=== PATIENT | female | born 1995 | race Caucasian/White ===

== ENCOUNTER 2025-04-23 12:45 | Outpatient (OUT) | payer OTHER, SELFPAY ==
--- OUTSIDE RECORDS SUMMARY | 2025-04-10 10:10 | XMS_ITS | Encounter Summary ---
Author Organization [facility] Address [address] [place] [address] Care Team Providers Care Tempering Oven Operator Name Role Phone Florecita Ureña MD Primary Care Provider [phone] Reason for Visit * Reason Comments Routine Visit Encounter Details Date Type Department Care Team (Late st Contact Info) Description 04/10/2025 10:10 AM EDT Initial [facility] [address] [place] [address] Ravindra Chandler DO [address] [facility] [address] [place] [place] [address] GA: 15w5d Social History Tobacco Use Types Packs/Day Years Used Date Smoking Tobacco: Never Assessed Estimated Date of Delivery Comme nts Yes 09/27/2025 Based on Ultraso und, FHR- 117 Sex and Gender Information Value Date Recorded Sex Assigned at Not on file Legal Sex Female 11:47 PM EDT Gender Identity Not on file Sexual Orientation Not on file documented as of this encounter Last Filed Vital Signs Vital Sign Reading Time Taken Comments Blood Pressure 120/70 04/10/2025 10:19 AM EDT Pulse - - Temperature - - Respiratory Rate - - Oxygen Saturation - - Inhaled Oxygen Concentration - - Weight 118 kg (259 lb 12.8 oz) 04/10/2025 10:19 AM EDT Height 162.6 cm (5' 4 ) 04/10/2025 10:22 AM EDT Body Mass Index 44.59 04/10/2025 10:19 AM EDT documented in this encounter Progress Notes * Dari Melgar LPN - 04/10/2025 10:10 AM EDT Reason for Appointment: Patient ID: Emilie Soto is a 29 y.o. female who presents for Routine Visit Patient presents today for Return OB appointment. MEDICATIONS Current Outpatient Medications Medication Instructions Doxylamine Succinate, Sleep, (UNISOM PO) 1 tablet, Nightly ondansetron (ZOFRAN) 4 mg, Every 8 hours PRN Prenat w/o K-TaEqj-Zupd-FA-DHA (TriStart DHA) 31-0.6-0.4-200 MG capsule 1 capsule, Daily RT ALLERGIES No Known Allergies PROBLEMS Active Ambulatory Problems Diagnosis Date Noted No Active Ambulatory Problems Resolved Ambulatory Problems Diagnosis Date Noted No Resolved Ambulatory Problems Past Medical History: Diagnosis Date Anxiety Bipolar disorder ([facility]) Depression Pre-eclampsia ([facility]) HISTORY PAST MEDICAL HISTORY SOCIAL HISTORY Past Medical History: Diagnosis Date Anxiety Bipolar disorder ([facility]) Depression Pre-eclampsia ([facility]) Social History Tobacco Use Smoking status: Not on file Smokeless tobacco: Not on file Substance Use Topics Alcohol use: Not on file Drug use: Not on file FAMILY HISTORY No family history on file. SURGICAL HISTORY History reviewed. No pertinent surgical history. REVIEW OF SYSTEMS Review of Systems: Review of Systems Constitutional: Negative. HENT: Negative. Eyes: Negative. Respiratory: Negative. Cardiovascular: Negative. Gastrointestinal: Negative. Genitourinary: Negative. Musculoskeletal: Negative. Skin: Negative. Neurological: Negative. All other systems reviewed and are negative. Hematological: Negative. Endocrine: Negative. Allergic/Immunologic: Negative. OBJECTIVE Objective: OBGyn Exam Vitals: Estimated body mass index is 44.59 kg/m?? as calculated from the following: Height as of this encounter: 5' 4 . Weight as of this encounter: 259 lb 12.8 oz. BP: 120/70 No LMP recorded. Patient is . ASSESSMENT & PLAN ICD-10-CM 1. Missed menses N92.6 2. , unspecified gestational age ([facility]) Z34.90 CBC and differential Hemoglobin A1c RPR Rapid drug screen, urine Rapid drug screen, urine POCT urinalysis dipstick manually resulted 3. Encounter for supervision of normal first in first trimester ([facility]) Z34.01 4. 15 weeks gestation of ([facility]) Z3A.15 CBC and differential Hemoglobin A1c RPR Urine culture Rapid drug screen, urine Rapid drug screen, urine POCT urinalysis dipstick manually resulted 5. Second trimester ([facility]) Z34.92 CBC and differential Hemoglobin A1c RPR Urine culture Rapid drug screen, urine Rapid drug screen, urine POCT urinalysis dipstick manually resulted New OB: Patient presents today for 1st time obstetrics appointment with provider. Patient is currently 15w5d . Patients history has been reviewed in great detail including any potential risks. Patient stated she currently has complaints of nausea taking zofran currently. Expectations throughout regarding labs, ultrasounds, and appointments have been discussed with the patient in detail.It was reiterated that the patient is to drink 6-8 glasses of water a day, eat 6 small meals a day,do not consume raw or undercooked meat, and stay away from [facility]. Patient has been consulted regarding any further do's and don'ts of . Patient voiced understanding and all questions and concerns were answered. Pt has complaints of craving Vape, rx for wellbutrin faxed to pharmacy. Patient stated today that she requests sterilization following the of her baby whether that be 6 weeks following vaginal delivery or at the time of if one is needed. Orders Placed This Encounter Procedures Urine culture CBC and differential Hemoglobin A1c RPR Rapid drug screen, urine POCT urinalysis dipstick manually resulted Follow Up: Patient is to return in 4 weeks for routine OB appointment. Documented by Dari Melgar LPN on behalf of: Ravindra Chandler DO documented in this encounter Plan of Treatment Upcoming Encounters Date Type Department Care Team (Late st Contact Info) Description 05/08/2025 11:20 AM EDT Routine [facility] [address] [place] [address] April Rowley PA [address] [place], [place] [id number] 10/04/2025 10:20 AM EST Consult [facility] [address] [place] [address] Ravindra Chandler, DO [address] [place] [address] Dr [place] [id number] Scheduled Orders Name Type Priority Associated Diagnoses Orde r Schedule CBC and differential Lab Routine , unspecified gestational age ([facility]) 15 weeks gestation of ([facility]) Second trimester ([facility]) Ordered: 04/10/2025 Hemoglobin A1c Lab Routine , unspecified gestational age ([facility] 15 weeks gestation of ([facility]) Second trimester ([facility]) Ordered: 04/10/2025 RPR Lab Routine , unspecified gestational age ([facility]) 15 weeks gestation of ([facility]) Second trimester ([facility]) Ordered: 04/10/2025 Urine culture Microbiology Routine 15 weeks gestation of ([facility]) Second trimester ([facility]) Ordered: 04/10/2025 Rapid drug screen, urine Lab Routine , unspecified gestational age ([facility]) 15 weeks gestation of ([facility]) Second trimester ([facility]) Expected: 04/10/2025 (Approximate), Expires: 04/10/2026 documented as of this encounter Procedures Procedure Name Priority Date/Time Associated Diagnosis Comments POCT URINALYSIS DIPSTICK Routine 04/10/2025 10:29 AM EDT , unspecified gestational age ([facility]) 15 weeks gestation of ([facility]) Second trimester ([facility]) documented in this encounter Results * POCT urinalysis dipstick manually resulted (04/10/2025 10:29 AM EDT) Color, UA Yellow Clarity, UA Clear Glucose, UA Negative Negative - 2000(110) ++++ mg/dL Bilirubin, UA Negative Negative - 4(70) +++ mg/dL Ketones, UA Negative Negative - 160(16) ++++ mg/dL Spec Grav, UA 1.020 1 - 1.03 Blood, UA Negative Negative - 50 Jose/mcL pH, UA 6.0 5 - 9 Protein, UA Negative Negative - 1999(20) ++++ mg/dL Urobilinogen, UA 1.0 0.2 - 12 mg/dL Leukocytes, UA Negative Negative - 500+++ Jai/mcL Nitrite, UA Negative Negative - Positive Urine 04/10/2025 10:2 9 AM EDT Ravindra Chandler DO POINT OF CARE TEST ENTER/EDIT OR DERABLES Final Result documented in this encounter Visit Diagnoses Diagnosis Missed menses , unspecified gestational age ([facility]) Encounter for supervision of normal first in first trimester ([facility]) 15 weeks gestation of ([facility]) Second trimester ([facility]) state, incidental Vapes nicotine containing substance documented in this encounter Care Teams Tempering Oven Operator Relationship Specialty Start Date End Date Florecita Ureña MD [address] [place] [address], [facility] [address], [place] [address] PCP - General Family Medicine 04/10/25 documented as of this encounter
--- OUTSIDE RECORDS SUMMARY | 2025-04-23 12:57 | XMS_ITS ---
Author Organization [facility] [facility] Source Produ ction (ClinicalSummary Clone) Address Unknown Care Team Providers Care Deburrer Strip Name Role Phone Unavailable Primary Care Physician Unavailab le Results * [UNITY] ANEUPLOIDY NIPT Performed by: [employer] Component Value Range Date Fraction 8.5% 03/12/2025 02 :19 am UT 22q11.2 Microdeletion LOW RISK <1 in 10,000 03/12/2025 02:19 am UT Sex Chromosome Aneuploidy NOT DETECTED 02:19 am UT Monosomy X LOW RISK <1 in 10,000 2024 02:19 am UTC Trisomy 13 LOW RISK <1 in 10,000 2024 02:19 am UTC Trisomy 18 LOW RISK <1 in 10,000 2024 02:19 am UTC Trisomy 21 LOW RISK <1 in 10,000 2024 02:19 am UT Sex FEMALE 03/12/2025 02:1 9 am UT Gestation ALBARADO 03/12/20 25 02:19 am UT For detailed report, see PDF See PDF 03/12/2025 02:19 am UTC 03/12/2025 02:1 9 am UT Social History Observation Value Start Date End Date
--- OUTSIDE RECORDS SUMMARY | 2025-04-23 12:57 | XMS_ITS | Encounter Summary ---
Author Organization [employer] Address [id number] [address] [place] [address] Care Team Providers Care Intake Manager Name Role Phone Florecita Ureña MANAGER SPRING-UTILITY TENDER CARDING Primary Care Provider Reason for Visit * Reason Comments Med Refill Encounter Details Date Type Department Care Team (Late st Contact Info) Description 07/20/2024 Refill [facility] [address] [place] [address] Florecita Ureña APRN-[facility] [address] [place] [address] Insulin resistance Social History Tobacco Use Types Packs/Day Years Used Date Smoking Tobacco: Former Cigarettes Smokeless Tobacco: Never Alcohol Use Standard Drinks/Week Comments No 0 (1 standard drink = 0.6 oz pur e alcohol) PHQ-2 Answer Date Recorded Total Score 21 06/26/2024 Childcare Answer Date Recorded Childcare Unknown 03/07/2019 Employment Answer Date Recorded Employment Unknown 03/07/2019 Hunger Screening Answer Date Recorded Within the past 12 months we worried whether our food would run out before we got money to buy more. Never True 06/26/2024 Within the past 12 months th e food we bought just didn't last and we didn't have money to get more. Never True 06/26/2024 Purpose - Life Answer Date Recorded Purpose and direction in life Unknown Comments No Sex and Gender Information Value Date Recorded Sex Assigned at Not on file Legal Sex Female 7:08 PM EDT Gender Identity Not on file Sexual Orientation Not on file documented as of this encounter Plan of Treatment Not on file documented as of this encounter Visit Diagnoses Diagnosis Insulin resistance Other abnormal glucose documented in this encounter Additional Health Concerns Assessment Noted Time PHQ-9 Depression Total Score: 21 024 9:16 AM EDT documented as of this encounter Care Teams Intake Manager Relationship Specialty Start Date End Date Florecita Ureña APRN-DAVID [address] [place] [address], [place] [phone] PCP - General Nurse Practitioner 06/26/24 documented as of this encounter
--- OUTSIDE RECORDS SUMMARY | 2025-04-23 12:57 | XMS_ITS | Encounter Summary ---
Author Organization [employer] [facility] tem Address [id number] [address] [place] [address] Care Team Providers Care Water Plant Maintenance Mechanic Name Role Phone Florecita Ureña CHILD PSYCHOLOGY TEACHER-ELECTRIC ORGAN INSPECTOR AND REPAIRER Primary Care Provider Encounter Details Date Type Department Care Team (Late st Contact Info) Description 11/24/2024 Telephone [facility] [address] [facility] [place] [address] Florecita Ureña APRN-CNP [address], [place] [address] Social History Tobacco Use Types Packs/Day Years Used Date Smoking Tobacco: Former Cigarettes Smokeless Tobacco: Never Alcohol Use Standard Drinks/Week Comments No 0 (1 standard drink = 0.6 oz pur e alcohol) Overall Financial Resource Strain (CARDIA) Answe r Date Recorded How hard is it for you to pa y for the very basics like food, housing, medical care, and heating? Not hard at all 10/02/2024 PHQ-2 Answer Date Recorded Total Score 21 06/26/2024 PRAPARE - Transportation Answer Date Re corded In the past 12 months, has l ack of transportation kept you from medical appointments or from getting medications? No 02/2025 In the past 12 months, has l ack of transportation kept you from meetings, work, or from getting things needed for daily living? No 10/02/2024 Housing Instability Answer Date Recorde d Are you worried or concerned that in the next two months you may not have stable housing that you own, rent or stay in as a part of a household? No 10/02/2024 Childcare Answer Date Recorded Childcare Unknown 03/07/2019 Employment Answer Date Recorded Employment Unknown 03/07/2019 Hunger Screening Answer Date Recorded Within the past 12 months we worried whether our food would run out before we got money to buy more. Never True 11/09/2024 Within the past 12 months th e food we bought just didn't last and we didn't have money to get more. Never True 11/09/2024 Purpose - Life Answer Date Recorded Purpose and direction in life Unknown Comments No Sex and Gender Information Value Date Recorded Sex Assigned at Not on file Legal Sex Female 7:08 PM EDT Gender Identity Not on file Sexual Orientation Not on file documented as of this encounter Plan of Treatment Not on file documented as of this encounter Visit Diagnoses Not on filedocumented in this encounter Additional Health Concerns Assessment Noted Time PHQ-9 Depression Total Score: 21 024 9:16 AM EDT documented as of this encounter Care Teams Water Plant Maintenance Mechanic Relationship Specialty Start Date End Date Florecita Ureña APRN-DAVID [address] [place] [address], [facility] [place] [phone] PCP - General Nurse Practitioner 06/26/24 documented as of this encounter
--- OUTSIDE RECORDS SUMMARY | 2025-04-23 12:57 | XMS_ITS | Clinical Summary ---
Author Organization [facility] Address [address] [place] [address] Care Team Providers Care Investigator Claims Name Role Phone Florecita Ureña MD Primary Care Provider [phone] Allergies No known active allergies Medications ondansetron (Zofran) 4 MG tablet Take 4 mg by mouth every 8 (eight) hours if needed 03/01/2025 Active Prenat w/o J-LrGao-Rofk-FA -DHA (TriStart DHA) 31-0.6-0.4-200 MG capsule Take 1 capsule by mouth in the morning. 02/06/2025 Active Doxylamine Succinate, Sleep, (UNISOM PO) Take 1 tablet by mouth at bedtime Active buPROPion SR (Wellbutrin SR) 150 MG 12 hr tabletIndicatio ns:Vapes nicotine containing substance Take 1 tablet (150 mg) by mouth at bedtime 30 tablet 11 04/10/2025 Active Encounters Date Type Department Care Team Description 04/10/2025 10:10 [place] [address] Ravindra Chandler DO GA: 15w5d 04/10/2025 [place] [address] Ravindra Chandler DO 04/03/2025 Travel from Last 3 Months Social History Tobacco Use Types Packs/Day Years Used Date Smoking Tobacco: Never Assessed Estimated Date of Delivery Comme nts Yes 09/27/2025 Based on Ultraso und, FHR- 117 Sex and Gender Information Value Date Recorded Sex Assigned at Not on file Legal Sex Female 11:47 PM EDT Gender Identity Not on file Sexual Orientation Not on file Last Filed Vital Signs Vital Sign Reading [...] Mass Index 44.59 04/10/2025 10:19 AM EDT Plan of Treatment Upcoming Encounters Date Type Department Care Team (Late st Contact Info) Description 05/08/2025 11:20 AM EDT Routine [facility] [address] [facility] [place] [address] April Rowley PA [address] [place] [address] 10/04/2025 10:20 AM EST Consult [facility] [address] [facility] [place] [address] Ravindra Chandler DO [address] [facility] [address] [place], [place] [phone] Procedures Procedure Name Priority Date/Time Associated Diagnosis Comments POCT URINALYSIS DIPSTICK Routine 04/10/2025 10:29 AM EDT , unspecified gestational age ([facility]) 15 weeks gestation of ([facility]) Second trimester ([facility]) from Last 3 Months Results * POCT urinalysis dipstick manually resulted [...] - 9 Protein, UA Negative Negative - 2000(20) ++++ mg/dL Urobilinogen, UA 1.0 0.2 - 12 mg/dL Leukocytes, UA Negative Negative - 500+++ Jai/mcL Nitrite, UA Negative Negative - Positive Urine 04/10/2025 10:2 9 AM EDT Ravindra Chandler DO POINT OF CARE TEST ENTER/EDIT OR DERABLES Final Result from Last 3 Months Insurance [employer] Care Teams Investigator Claims Relationship Specialty Start Date End Date Florecita Ureña MD [address] [facility] [address] [place], [place] [phone] PCP - General Family Medicine 04/10/25
--- OUTSIDE RECORDS SUMMARY | 2025-04-23 12:57 | XMS_ITS | Encounter Summary ---
Author Organization [facility] Address [address] [facility] [place] [address] Care Team Providers Care Process Control Engineer Name Role Phone Florecita Ureña MD Primary Care Provider [phone] Encounter Details Date Type Department Care Team (Late Contact Info) Description 04/10/2025 Bamboo flowsheet [facility] [address] [place] [address] Ravindra Chandler DO [address] [place], [facility] Social History Tobacco Use Types Packs/Day Years [...] as of this encounter Plan of Treatment Upcoming Encounters Date Type Department Care Team (Late Contact Info) Description 05/08/2025 11:20 AM EDT Routine [facility] [address] [place] [address] April Rowley PA [address] [place] [address] 10/04/2025 10:20 AM EST Consult [facility] [address] [place] [address] Geraldine, Ravindra, [address] [place] [address] documented as of this encounter Visit Diagnoses Not on filedocumented in this encounter Care Teams Process Control Engineer Relationship Specialty Start Date End Date Florecita Ureña MD [address] [facility] [address], [place] [address] PCP - General Family Medicine 04/10/25 documented as of this encounter
--- OUTSIDE RECORDS SUMMARY | 2025-04-23 12:57 | XMS_ITS | Encounter Summary ---
Author Organization [employer] [facility] tem Address [id number] [address] [place] [address] Care Team Providers Care Grey Washer Name Role Phone Florecita Ureña E LEARNING DEVELOPER-ROOFING MACHINE OPERATOR Primary Care Provider Encounter Details Date Type Department Care Team (Late st Contact Info) Description 06/26/2024 Orders Only [facility] [address] [place] [address] [place] [phone] Mago Wilhelm CMA Social History Tobacco Use Types Packs/Day Years [...] documented as of this encounter Care Teams Grey Washer Relationship Specialty Start Date End Date Florecita Ureña APRN-ROOFING MACHINE OPERATOR [address] [place] [address], [place] [address] PCP - General Nurse Practitioner 06/26/24 documented as of this encounter
--- OUTSIDE RECORDS SUMMARY | 2025-04-23 12:57 | XMS_ITS | Encounter Summary ---
Author Organization [email or web address] tem Address [facility]-[id number] [address] [place] [address] Care Team Providers Care Emergency Management Director Name Role Phone Florecita Ureña WHARF LABOURER-OPTICAL LABORATORY TECHNICIAN Primary Care Provider Reason for Visit * Reason Comments Med Refill Encounter Details Date Type Department Care Team (Late st Contact Info) Description 08/21/2024 Refill [facility] [address] [place] [address] Florecita Ureña [facility]N-[facility] [address] [place] [address] Insulin resistance Social History Tobacco Use [...] got money to buy more. Never True 07/26/2024 Within the past 12 months th e food we bought just didn't last and we didn't have money to get more. Never True 07/26/2024 Purpose - Life Answer Date Recorded Purpose [...] documented as of this encounter Care Teams Emergency Management Director Relationship Specialty Start Date End Date Florecita Ureña APRN-DAVID [address] [place] [address], [place] [phone] PCP - General Nurse Practitioner 06/26/24 documented as of this encounter
--- OUTSIDE RECORDS SUMMARY | 2025-04-23 12:57 | XMS_ITS | Encounter Summary ---
Author Organization [employer] tem Address [id number] [address] [place] [address] Care Team Providers Care Tumbler Operator Name Role Phone Florecita Ureña MORTGAGE LOAN COORDINATOR-[facility] Primary Care Provider Reason for Visit * Reason Onset Date Comments Med Refill 08/21/2024 Encounter Details Date Type Department Care Team (Late st Contact Info) Description 08/21/2024 Refill [facility] [address] [place] [address] Florecita Ureña APRN-CNP [address] [place], [place] [address] Insulin resistance Social History Tobacco Use [...] documented as of this encounter Care Teams Tumbler Operator Relationship Specialty Start Date End Date Flroecita Ureña APRN-DAVID [address] [place] [address], [place] [address] PCP - General Nurse Practitioner 06/26/24 documented as of this encounter
--- OUTSIDE RECORDS SUMMARY | 2025-04-23 12:57 | XMS_ITS | Encounter Summary ---
Author Organization [facility] Address [address] [facility] [place] [address] Care Team Providers Care Human Resources Admin Name Role Phone Florecita Ureña MD Primary Care Provider [phone] Encounter Details Date Type Department Care Team (Late Contact Info) Description 12/08/2024 Orders Only [facility] [address] [place] [address] [place] [phone] Saundra Ríos MA [address] [place] [address] Social History Tobacco Use Types Packs/Day Years Used Date Smoking Tobacco: Never Assessed Comments Unknown Sex and Gender Information Value Date Recorded Sex Assigned at Not on file Legal Sex Female 11:47 PM EDT Gender Identity Not on file Sexual Orientation Not on file documented as of this encounter Plan of Treatment Upcoming Encounters Date Type Department Care Team (Late Contact Info) Description 05/08/2025 11:20 AM EDT Routine [facility] [address] [place] [address] [place] [address] April Rowley PA [address] [facility] [address] [place], [place] [id number] 10/04/2025 10:20 AM EST Consult [facility] [address] [place] [address] [place] [address] Ravindra Chandler DO [address] [facility] [address] [place], [place] [id number] documented as of this encounter Procedures Procedure Name Priority Date/Time Associated Diagnosis Comments PAP SMEAR Routine 08/16/2019 12:00 AM EST documented in this encounter Results * Pap Smear (08/16/2019 12:00 AM EST) Swab Cervical swab / Unknown us Ravindra Geraldine DO LAB CYTOLOGY ORDERABLES Final Re sult EXTERNAL LAB documented in this encounter Visit Diagnoses Not on filedocumented in this encounter Care Teams Human Resources Admin Relationship Specialty Start Date End Date Florecita Ureña MD [address] [facility] [address], [place] [address] PCP - General Family Medicine 04/10/25 documented as of this encounter
--- OUTSIDE RECORDS SUMMARY | 2025-04-23 12:58 | XMS_ITS | Clinical Summary ---
Author Organization [employer] tem Address [id number] [address] [place] [address] Care Team Providers Care Jump [employer] Machine Presser Name Role Phone Florecita Ureña APRN-BIOMETRICS ANALYST Primary Care Provider Allergies No known active allergies Medications [id number] 9-dha 31 mg iron- 1 mg-200 mg capsuleIndicati ons:First trimester Take 1 capsule by mouth in the morning. 90 capsule 3 02/06/2025 Active ondansetron (ZOFRAN) 4 mg tabletIndicatio ns:Nausea/vomit ing in Take 1 tablet (4 mg total) by mouth every 8 (eight) hours as needed for nausea or vomiting. 30 tablet 1 03/01/2025 Active doxylamine (UNISOM) 25 mg tabletIndicatio ns:Nausea/vomit ing in Take 1 tablet (25 mg total) by mouth nightly as needed for sleep or nausea. 30 tablet 1 03/08/2025 Active acetaminophen (TYLENOL EXTRA STRENGTH) 500 mg tablet Take 2 tablets (1,000 mg total) by mouth every 6 (six) hours as needed for pain. Active Active Problems Problem Noted Date Diagnosed Date Maternal varicella, non-immune 02/11/2025 Rubella equivocal status, antepartum 02/11/2025 Vapes nicotine containing substance 02/06/2025 Marijuana use during 02/06/2025 Family history of autism 02/06/2025 Overview (02/06/2025): 3 of 4 children are autistic, fourth child is getting tested. Nausea/vomiting in 02/06/2025 Obesity affecting 09/08/2024 High cholesterol 05/10/2024 Overview (02/06/2025): Just found out ADHD (attention deficit hyperactivity disorder) Overview (10/18/2024): Child Anxiety Bipolar disorder Depression History of gestational hypertension Estimated Date of Delivery Comme nts Yes 09/27/2025 Based on Ultraso und Encounters Date Type Department Care Team Description 03/28/2025 11:30 AM EDT Routine [facility] Obstetrics/Gynecolo gy [address] [place] [phone] Mesha Johnson, DIRECTOR OF RESOURCE DEVELOPMENT-BIOMETRICS ANALYST GA: [id number] 03/27/2025 Travel 03/13/2025 Telephone [facility] Obstetrics/Gynecolo gy [address] [place] [address] Mickie Mathur CMA 03/13/2025 Telephone Maternal- Medicine at [facility] [address] [place] [phone] Dottie Pressley RN 03/12/2025 Telephone [facility] Obstetrics/Gynecolo gy [address] [place] [phone] No Pcp, No Pcp 03/08/2025 Orders Only [facility] Obstetrics/Gynecolo gy [address] [place] [address] Mesha Johnson, DIRECTOR OF RESOURCE DEVELOPMENT-BIOMETRICS ANALYST Nausea/vomiting in (Primary Dx) 03/01/2025 8:45 AM EDT Initial [facility] Obstetrics/Gynecolo gy [address] [place] [address] Mesha Johnson, DIRECTOR OF RESOURCE DEVELOPMENT-BIOMETRICS ANALYST GA: 10w0d 02/28/2025 Travel 02/20/2025 Telephone [facility] Obstetrics/Gynecolo gy [address] [place] [address] Mesha Johnson, DIRECTOR OF RESOURCE DEVELOPMENT-BIOMETRICS ANALYST 02/12/2025 1:30 PM EDT Office Visit [facility] [address] [place] [address] [place] [phone] Ronnie Tate, Irritant contact dermatitis due to plants, except food (Primary Dx) 02/12/2025 Travel 02/09/2025 Orders Only [facility] Obstetrics/Gynecolo [address] [place] [phone] Mickie Mathur CMA First trimester (Primary Dx) 02/08/2025 Travel 02/06/2025 1:00 PM EDT Telemedicine [facility] Obstetrics/Gynecolo [address] [facility] [place] [address] Mesha Johnson, DIRECTOR OF RESOURCE DEVELOPMENT-BIOMETRICS ANALYST First trimester (Primary Dx); History of gestational hypertension; Nausea and vomiting during prior to 22 weeks gestation; Nausea/vomiting in 02/06/2025 Travel 02/05/2025 Orders Only [facility] Obstetrics/Gynecolo [address] [facility] [place] [address] Veronique Horton, DIRECTOR OF RESOURCE DEVELOPMENT-CNM 02/02/2025 12:29 PM EDT - 02/02/2025 11:59 PM EDT Hospital Encounter [facility] - Ultrasound [address] [place] [address] Mesha Johnson, DIRECTOR OF RESOURCE DEVELOPMENT-BIOMETRICS ANALYST Amenorrhea; Positive blood test Discharge Disposition: Home 02/01/2025 Orders Only [facility] Obstetrics/Gynecolo [address] [place] [phone] Marisa Richard RN Amenorrhea (Primary Dx); Positive blood test 01/31/2025 Travel 01/30/2025 Orders Only [facility] Obstetrics/Gynechugh [address] [place] [address] Mesha Johnson, DIRECTOR OF RESOURCE DEVELOPMENT-BIOMETRICS ANALYST Positive urine test (Primary Dx) 01/30/2025 Telephone [facility] Obstetrics/Gynechugh [address] [place] [address] Mesha Johnson, DIRECTOR OF RESOURCE DEVELOPMENT-BIOMETRICS ANALYST from Last 3 Months Family History Medical History Relation Name Comments Heart disease Father Mateo soto Hypertension Mother Geri escoto Relation Name Status Comments Father Mateo soto Alive Mother Geri esocto Social History Tobacco Use Types Packs/Day Years Used Date Smoking Tobacco: Former Cigarettes 3 1.3 S tarted: 04/26/2024 Vaping/E-cigarettes Smokeless Tobacco: Never Tobacco Cessation:Counseling Given: Not Answered Alcohol Use Standard Drinks/Week Comments No 0 (1 standard drink = 0.6 oz pur e alcohol) Overall Financial Resource Strain (CARDIA) Answe r Date Recorded How hard is it for you to pa y for the very basics like food, housing, medical care, and heating? Patient declined 02/28/2025 PHQ-2 Answer Date Recorded Total Score 2 02/28/2025 PRAPARE - Transportation Answer Date Re corded [...] as a part of a household? No 02/28/2025 Childcare Answer Date Recorded Do problems getting child ca re make it difficult for you to work or study? No 02/28/2025 Employment Answer Date Recorded Employment Unknown 03/07/2019 Hunger Screening Answer Date Recorded Within the past 12 months we worried whether our food would run out before we got money to buy more. Never True 03/28/2025 Within the past 12 months th e food we bought just didn't last and we didn't have money to get more. Never True 03/28/2025 Purpose - Life Answer Date Recorded Purpose and direction in life Unknown Estimated Date of Delivery Comme nts Yes 09/27/2025 Based on Ultraso und Sex and Gender Information Value Date Recorded Sex Assigned at Not on file Legal Sex Female 7:08 PM EDT Gender Identity Not on file Sexual Orientation Not on file Last Filed Vital Signs Vital Sign Reading Time Taken Comments Blood Pressure 122/76 03/28/2025 11:30 AM EDT Pulse 94 02/12/2025 1:38 PM EDT Temperature 37 C (98.6 F) 02/12/2025 1:38 PM EDT Respiratory Rate 20 05/06/2021 8:33 PM EDT Oxygen Saturation 98% 02/12/2025 1:38 PM EDT Inhaled Oxygen Concentration - - Weight 115.8 kg (255 lb 6.4 oz) 025 11:30 AM EDT Height 161.3 cm (5' 3.5 ) 11/21/2024 9:35 AM EST Body Mass Index 44.53 11/21/2024 9:35 AM EST Plan of Treatment Health Maintenance Due Date Last Done Comments DTaP,Tdap and Td Vaccines (7 - Td or Tdap) 02/08/2020 02/07/2010, 05/18/2003, 06/16/1999, Additional history exists Influenza Vaccine 05/28/2025 Adult BMI Follow Up Plan 06/12/2025 06/12/2024 Depression Screening 02/28/2026 02/28/2025 Adult BMI Screening 03/28/2026 03/28/2025 Tobacco Screening 03/28/2026 03/28/2025 Pap Smear 03/01/2028 03/01/2025, 07/29, 08/09/2018 Medical Devices Not on file Procedures Procedure Name Priority Date/Time Associated Diagnosis Comments THIN PREP PAP TEST Routine 03/01/2025 12 :07 PM EDT Cervical smear, as part of routine gynecological examination CHLAMYDIA/GONORRHOEAE BY PCR, FLUID Routine 03/01/2025 12:07 PM EDT Cervical smear, as part of routine gynecological examination GLU 1H POST 50G LOAD Routine 02/09/2025 11:02 AM EDT First trimester GLUCOSE TOLERANCE, 1 HR 50GM LOAD ( PATIENTS ONLY) Routine 02/09/2025 11:02 AM EDT First trimester TYPE AND SCREEN Routine 02/09/2025 9:46 AM EDT First trimester PROTEIN CREAT RATIO Routine 02/09/2025 9 :46 AM EDT First trimester URINALYSIS Routine 02/09/2025 9:46 AM EDT First trimester DRUG SCREEN, URINE Routine 02/09/2025 9: 46 AM EDT First trimester URIC ACID Routine 02/09/2025 9:46 AM EDT First trimester COMPREHENSIVE METABOLIC PANEL Routine 02/09/2025 9:46 AM EDT First trimester SYPHILIS TOTAL(UNKNOWN SYPHILIS STATUS) Routine 02/09/2025 9:46 AM EDT First trimester VARICELLA ZOSTER ANTIBODY, IGG Routine 02/09/2025 9:46 AM EDT First trimester RUBELLA IGG IMMUNE STATUS Routine 02/09/2025 9:46 AM EDT First trimester HIV 1&2 AB/AG SCREEN (P24 AG) Routine 02/09/2025 9:46 AM EDT First trimester HEPATITIS PANEL, ACUTE Routine 02/09/2025 9:46 AM EDT First trimester HCG-BETA, SERUM Routine 02/09/2025 9:46 AM EDT First trimester URINE CULTURE Routine 02/09/2025 9:46 AM EDT First trimester US PREG LESS THAN 14 WKS WITH TRANSVAGINAL Routine 02/02/2025 1:00 PM EDT Amenorrhea Positive blood test HCG-BETA, SERUM Routine 01/31/2025 8:45 AM EDT Positive urine test from Last 3 Months Results * Chlamydia/Gonorrhoeae by PCR, Fluid (03/01/2025 12:07 PM EDT) CHLAMYDIA PCR, [place] Negative Negative 03/02/2025 12:13 PM EDT [facility] Comment:Chlamydia trachomati s not detected by nucleic acid amplification. This does not exclude the possibility of infection because results are dependent on adequate specimen collection. GONORRHOEAE PCR, [place] Negative Negative 03/02/2025 12:13 PM EDT [facility] Comment:Neisseria gonorrhoea e not detected by nucleic acid amplification. This does not exclude the possibility of infection because results are dependent on adequate specimen collection. ThinPrep cytology technique (qualifier value) Cervix uteri structure / Unknown 03/01/2025 12:07 PM EDT 03/02/2025 4:02 AM EDT Mesha HAYDEN MICROBIOLOGY - GENERAL O RDERABLES Final Result [facility] [address] [place] [address], [place] [phone] * Thin Prep Pap Test (03/01/2025 12:07 PM EDT) Case Report Gynecologic Cytology Report Case: [id number] Authorizing Provider: CATRACHO Erazo Collected: 03/01/2025 1207 [facility] Received: 03/01/2025 1207 Obstetrics/Gy necology First Screen: Samantha Oliveira CT(ASCP) Rescreen: SHIRA Ford(ASCP) Specimen: Thin Prep Pap, Cervix 3:12 PM EDT [facility] Specimen Adequacy Satisfactory for evaluation, endocervical/t ransformation zone component present 3:12 PM EDT [facility] Interpretation NEGATIVE FOR INTRAEPITHELIA L LESION OR MALIGNANCY NEGATIVE FOR INTRAEPITHELIA L LESION OR MALIGNANCY, UNSATISFACTORY , EPITHELIAL CELL ABNORMALITY, GLANDULAR EPITHELIAL CELL ABNORMALITY. , SQUAMOUS EPITHELIAL CELL ABNORMALITY, NO DIAGNOSIS RENDERED. 06/09/202 5 3:12 PM EDT [facility] at 1512 EDT Additional Information The Pap test is a screening test with an inherent, but low, probability of error. The Pap test is primarily effective for the diagnosis and prevention of squamous cell carcinoma. Regular screening is critical for prevention. ThinPrep liquid-based slides, which meet the Desktop Manager criteria for automated screening, have been screened by the ThinPrep Imaging System (as of 06/13/07) along with an additional manual rescreening by a cytotechnologi st and, if indicated, by a pathologist. 5 3:12 PM EDT [facility] Clinical Information none 5 3:12 PM EDT [facility] Embedded Images 5 3:12 PM EDT [facility] ThinPrep cytology technique (qualifier value) Cervix uteri structure / Unknown 03/01/2025 12:07 PM EDT 03/01/2025 12:07 PM EDT us Mesha Johnson DIRECTOR OF RESOURCE DEVELOPMENT-BIOMETRICS ANALYST PATHOLOGY/CYTOLOGY ORDER RAMONE Final Result [facility] [address] [place] [address], * Glucose 1h post 50g load (02/09/2025 11:02 AM EDT) GLUCOSE, 1HR POST 50GM LOAD 82 65 - 139 mg/dL 02/09/2025 6:07 PM EDT [facility] Blood Venous blood / Unknown Venipuncture / Unknown 02/09/2025 11:02 AM EDT 02/09/2025 11:02 AM EDT us Mesha Johnson DIRECTOR OF RESOURCE DEVELOPMENT-BIOMETRICS ANALYST LAB BLOOD ORDERABLES Fin al Result [facility] [address] [place] [address], * HIV 1&2 AB/AG Screen (P24 AG) (02/09/2025 9:46 AM EDT) HIV 1 AND 2 AB/AG SCREEN Non-Reacti ve Non-Reacti ve 02/09/2025 9:43 PM EDT [facility] Blood Venous blood / Unknown Venipuncture / Unknown 02/09/2025 9:46 AM EDT 02/09/2025 9:46 AM EDT Narrative [facility] - 02/09/2025 9:43 PM EDT This information has been disclosed to you from confidential records protected from disclosure by state law. You shall make no further disclosure of this information without the specific, written and informed release of the individual to whom it pertains, or as otherwise permitted by state law. A general authorization for the release of medical or other information is not sufficient for the purpose of the release of HIV test results or diagnoses. Mesha Johnson DIRECTOR OF RESOURCE DEVELOPMENT-BIOMETRICS ANALYST LAB BLOOD ORDERABLES Fin al Result [facility] [address] [place] [address], * Protein creat ratio (02/09/2025 9:46 AM EDT) URINE PROTEIN, RANDOM (MG/L) 50 <120 mg/L 02/09/2025 2:01 PM EDT [facility] URINE CREATININE,RDM 97.75 mg/dL 02/09/2025 2:01 PM EDT [facility] U/PRO/DIRECTOR BUSINESS INTELLIGENCE RATIO CALC 0.05 <=0.20 02/09/2025 2:01 PM EDT [facility] Urine Urine specimen collection, clean catch / Unknown 02/09/2025 9:46 AM EDT 02/09/2025 9:46 AM EDT Narrative [facility] - 02/09/2025 2:01 PM EDT Nephrotic Syndrome is associated with ratios >3.5 Mesha Johnson DIRECTOR OF RESOURCE DEVELOPMENT-BIOMETRICS ANALYST URINE ORDERABLES Final R esult Performing Organization Address City/[facility]/ZIP Co de Phone Number [facility] [address] [place] [address], [place] [phone] * Rubella IGG immune status (02/09/2025 9:46 AM EDT) RUBELLA IMMUNE IGG 0.8 <0.9 AI 02/09/2025 11:22 PM EDT [facility] Blood Venous blood / Unknown Venipuncture / Unknown 02/09/2025 9:46 AM EDT 02/09/2025 9:46 AM EDT [facility] - 02/09/2025 11:22 PM EDT Interpretation < 0.8 NEGATIVE - considered not immune. 0.8 - 0.9 EQUIVOCAL - consider retesting with new specimen. > 0.9 POSITIVE - considered immune. Mesha Johnson DIRECTOR OF RESOURCE DEVELOPMENT-BIOMETRICS ANALYST LAB BLOOD ORDERABLES Fin al Result Performing Organization Address City/[facility]/ZIP Co de Phone Number [facility] [address] [place] [address], * Syphilis Total (Unknown Syphilis Status) (02/09/2025 9:46 AM EDT) SYPHILIS TOTAL <0.2 <=0.8 AI 02/09/2025 11:22 PM EDT [facility] Blood Venous blood / Unknown Venipuncture / Unknown 02/09/2025 9:46 AM EDT 02/09/2025 9:46 AM EDT [facility] - 02/09/2025 11:22 PM EDT NON REACTIVE No serologic evidence of infection to Treponema pallidum. Repeat testing may be considered in patients with suspected acute or primary syphilis in 2 to 4 weeks. us Mesha Johnson DIRECTOR OF RESOURCE DEVELOPMENT-BIOMETRICS ANALYST LAB BLOOD ORDERABLES Fin al Result [facility] [address] [place] [address], * (ABNORMAL) Drug Screen, Urine (02/09/2025 9:46 AM EDT) AMPHETAMINE/METHAM P Negative Negative 02/09/2025 2:03 PM EDT [facility] Comment:AMPH/METH screening cut off = 1000 ng/mL COCAINE METABOLITE Negative Negative 2024 2:03 PM EDT [facility] Comment:Cocaine screening cu t off value = 300 ng/mL ECSTASY Negative Negative 02/09/2025 2:03 PM EDT [facility] Comment:Ecstasy screening cu t off value = 500 ng/mL METHADONE Negative Negative 02/09/2025 2:03 PM EDT [facility] Comment:Methadone screening cut off value = 300 ng/mL. OPIATES Negative Negative 02/09/2025 2:03 PM EDT [facility] Comment: Opiates screening cut off value = 300 ng/mL This test is used for the detection of codeine, hydrocodone (>1000 ng/mL), morphine and hydromorphone (>900 ng/mL) in urine. OXYCODONE Negative Negative 02/09/2025 2:03 PM EDT [facility] Comment: Oxycodone screening cut off value = 300 ng/mL This test is used for the detection of oxycodone and oxymorphone in urine. PHENCYCLIDINE Negative Negative 02/09/2025 2:03 PM EDT [facility] Comment:Phencyclidine screen ing cut off value = 25 ng/mL CANNABINOIDS Positive(A) Negative 02/09/2025 2:03 PM EDT [facility] Comment:Cannabinoids/THC scr eening cut off value = 50 ng/mL Urine Barbiturates Negative Negative 2024 2:03 PM EDT [facility] Comment:Barbiturates screeni ng cut off value = 200 ng/mL BENZODIAZEPINES Negative Negative 2:03 PM EDT [facility] Comment:Benzodiazepines scre ening cut off value = 200 ng/mL Urine 02/09/2025 9:46 AM EDT 02/09/2025 9:46 AM EDT Narrative [facility] - 02/09/2025 2:03 PM EDT Confirmation available upon request. Mesha Johnson DIRECTOR OF RESOURCE DEVELOPMENT-BIOMETRICS ANALYST URINE ORDERABLES Final R esult [facility] [address] [place] [address], * Hepatitis panel, acute (02/09/2025 9:46 AM EDT) HEPATITIS B SURF AG Non-Reacti ve Non-Reacti ve 02/09/2025 9:52 PM EDT [facility] HEPATITIS A IGM Non-Reacti ve Non-Reacti ve 02/09/2025 9:52 PM EDT [facility] HEPATITIS B CORE IGM Non-Reacti ve Non-Reacti ve 02/09/2025 9:52 PM EDT [facility] ANTI HCV W/PCR REFLX Non-Reacti ve Non-Reacti ve 02/09/2025 9:52 PM EDT [facility] Comment: If recent infection suspected, recommend repeat testing (>2 months). Majcjm-lf-nnqlis ratio is <1.0. Blood Venous blood / Unknown Venipuncture / Unknown 02/09/2025 9:46 AM EDT 02/09/2025 9:46 AM EDT Mesha Johnson DIRECTOR OF RESOURCE DEVELOPMENT-BIOMETRICS ANALYST LAB BLOOD ORDERABLES Fin al Result [facility] [address] [place] [address], [place] [phone] * Urinalysis (02/09/2025 9:46 AM EDT) COLOR Yellow Yellow, Colorless 02/09/2025 1:33 PM EDT [facility] TURBIDITY Clear Clear 02/09/2025 1:33 PM EDT [facility] SPECIFIC GRAVITY 1.017 1.003 - 1.035 02/09/2025 1:33 PM EDT [facility] NITRITE Negative Negative 02/09/2025 1:33 PM EDT [facility] PH,URINE 6.0 5.0 - 8.5 02/09/2025 1:33 PM EDT [facility] LEUKOCYTE ESTERASE Negative Negative 02/09/2025 1:33 PM EDT [facility] PROTEIN Negative Negative 02/09/2025 1:33 PM EDT [facility] KETONES (URINE) Negative Negative 1:33 PM EDT [facility] UROBILINOGEN <1.1 eu/dL <1.1 eu/dL 02/09/2025 1:33 PM EDT [facility] BILIRUBIN (URINE) Negative Negative 02/09/2025 1:33 PM EDT [facility] BLOOD/HGB Negative Negative 02/09/2025 1:33 PM EDT [facility] GLUCOSE (URINE) Negative Negative 1:33 PM EDT [facility] Urine 02/09/2025 9:46 AM EDT 02/09/2025 9:46 AM EDT Narrative [facility] - 02/09/2025 1:33 PM EDT Urine received without preservative. Delays in transport may affect results. Interpret with caution. A clinical correlation is recommended. us Mesha Johnson DIRECTOR OF RESOURCE DEVELOPMENT-BIOMETRICS ANALYST URINE ORDERABLES Final R esult [facility] [address] [place] [address], [place] [phone] * Type and screen (02/09/2025 9:46 AM EDT) ABO A 02/09/2025 1:19 PM EDT [facility] RH Positive 02/09/2025 1:19 PM EDT [facility] Antibody Screen Negative 02/09/2025 1:19 PM EDT [facility] Blood Venous blood / Unknown Venipuncture / Unknown 02/09/2025 9:46 AM EDT 02/09/2025 9:46 AM EDT Mesha Johnson DIRECTOR OF RESOURCE DEVELOPMENT-BIOMETRICS ANALYST BLOOD BANK TEST ORDERABL ES Edited Result - Final [facility] [address] [address], [facility] [address] [place] [address] [place] [address], * Urine Culture (02/09/2025 9:46 AM EDT) [facility] CULTURE RESULTS 10-50,000 ORGANISMS/mL NORMAL UROGENITAL GIBRAN 02/10/2025 8:57 AM EDT [facility] Urine Urine specimen collection, clean catch / Unknown 02/09/2025 9:46 AM EDT 02/09/2025 9:46 AM EDT Mesha Johnson DIRECTOR OF RESOURCE DEVELOPMENT-BIOMETRICS ANALYST MICROBIOLOGY - GENERAL O RDERABLES Final Result [facility] [address] [place] [address], * Varicella zoster antibody, IgG (02/09/2025 9:46 AM EDT) [facility] VARICELLA IGG 0.8 <1.0 AI 02/09/2025 11:22 PM EDT [facility] Blood Venous blood / Unknown Venipuncture / Unknown 02/09/2025 9:46 AM EDT 02/09/2025 9:46 AM EDT [facility] - 02/09/2025 11:22 PM EDT Intepretation < 0.9 Negative 0.9 - 1.0 Equivocal > 1.0 Positive Mesha Johnson DIRECTOR OF RESOURCE DEVELOPMENT-BIOMETRICS ANALYST LAB BLOOD ORDERABLES Fin al Result Performing Organization Address City/[facility]/ZIP Co de Phone Number [facility] [address] [place] [address], [place] [phone] * HCG, Quantitative, (02/09/2025 9:46 AM EDT) Only the most recent of2 resultswithin the time period is included. SERUM B HCG,3RD I.S. 97,388 mIU/mL 02/09/2025 7:24 PM EDT [facility] Blood Venous blood / Unknown Venipuncture / Unknown 02/09/2025 9:46 AM EDT 02/09/2025 9:46 AM EDT Narrative [facility] - 02/09/2025 7:24 PM EDT WEEKS (SINCE LMP) MIU/mL 3 WEEKS 5 - 50 4 WEEKS 5 - 426 5 WEEKS 18 - 7,340 6 WEEKS 1,080 - 56,500 7-8 WEEKS 7,650 - 229,000 9-12 WEEKS 25,700 - 288,000 13-16 WEEKS 13,300 - 254,000 17-24 WEEKS 4,060 - 165,400 25-40 WEEKS 3,640 - 117,000 MALES AND NON- FEMALES - <5 MIU/mL This test has been FDA approved for use in only. Elevated levels are not necessarily diagnostic for trophoblastic or nontrophoblastic neoplasms. Mesha Johnson DIRECTOR OF RESOURCE DEVELOPMENT-BIOMETRICS ANALYST LAB BLOOD ORDERABLES Fin al Result Performing Organization Address City/[facility]/ZIP Co de Phone Number [facility] [address] [place] [address], [place] [phone] * Uric acid (02/09/2025 9:46 AM EDT) URIC ACID 5.2 2.6 - 7.2 mg/dL 02/09/2025 5:57 PM EDT [facility] Blood Venous blood / Unknown Venipuncture / Unknown 02/09/2025 9:46 AM EDT 02/09/2025 9:46 AM EDT us Mesha Johnson DIRECTOR OF RESOURCE DEVELOPMENT-BIOMETRICS ANALYST LAB BLOOD ORDERABLES Fin al Result [facility] [address] [place] [address], [place] [phone] * Comprehensive metabolic panel (02/09/2025 9:46 AM EDT) Pathologist [facility] SODIUM 142 134 - 146 mmol/L 02/09/2025 5:57 PM EDT [facility] POTASSIUM 4.2 3.5 - 5.0 mmol/L 02/09/2025 5:57 PM EDT [facility] CHLORIDE 109 98 - 109 mmol/L 02/09/2025 5:57 PM EDT [facility] CARBON DIOXIDE 23 22 - 32 mmol/L 02/09/2025 5:57 PM EDT [facility] ANION GAP 10 5 - 15 mmol/L 02/09/2025 5:57 PM EDT [facility] BLOOD UREA NITROGEN 9 5 - 23 mg/dL 02/09/2025 5:57 PM EDT [facility] CREATININE 0.61 0.40 - 1.00 mg/dL 02/09/2025 5:57 PM EDT [facility] Comment:METHOD TRACEABLE TO IDMS STANDARD GLUCOSE 85 65 - 99 mg/dL 02/09/2025 5:57 PM EDT [facility] CALCIUM 8.8 8.5 - 10.5 mg/dL 02/09/2025 5:57 PM EDT [facility] TOTAL PROTEIN 6.0 6.0 - 8.0 g/dL 02/09/2025 5:57 PM EDT [facility] ALBUMIN 3.7 3.2 - 5.3 g/dL 02/09/2025 5:57 PM EDT [facility] ALKALINE PHOSPHATASE 44 39 - 130 U/L 02/09/2025 5:57 PM EDT [facility] AST 10 <=41 U/L 02/09/2025 5:57 PM EDT [facility] ALT 8 <=31 U/L 02/09/2025 5:57 PM EDT [facility] BILIRUBIN,TOTAL 0.3 0.3 - 1.2 mg/dL 02/09/2025 5:57 PM EDT [facility] EGFR Non-Race Dependent >90 >=60 ml/min/1.7 3sq.m 02/09/2025 5:57 PM EDT [facility] Comment: Reported eGFR is based on the CKD-EPI 2020 equation that does not use a race coefficient. Blood Venous blood / Unknown Venipuncture / Unknown 02/09/2025 9:46 AM EDT 02/09/2025 9:46 AM EDT us Mesha Johnson DIRECTOR OF RESOURCE DEVELOPMENT-BIOMETRICS ANALYST LAB BLOOD ORDERABLES Fin al Result [facility] [address] [place] [address], [place] [phone] * Ultrasound less than 14 weeks with transvaginal (02/02/2025 1:00 PM EDT) Anatomical Region Laterality Modality OB-TRANSCRIBING MACHINE MECHANIC Ultrasound 02/02/2025 1:38 PM EDT Narrative 02/02/2025 1:47 PM EDT CLINICAL HISTORY: Dates and viability Comparison: None FINDINGS: * Single live IUP at 6 weeks 1 day. [place]-rump length 4.7 mm. Heart rate 117 bpm. Yolk sac visualized. * The gestational sac is normal in morphology. Gestational sac fluid volume is normal for this very early gestational age. Placental morphology and location cannot be determined based on this early gestational age. * Probable corpus luteal cyst maternal right ovary measuring 2.1 x 1.7 x 1.9 cm. Otherwise maternal ovaries unremarkable. IMPRESSION: * Single live IUP at 6 weeks 1 day Finalized by Guy Angela MD on 02/02/2025 1:47 PM Procedure Note Guy Angela MD - 02/02/2025 CLINICAL HISTORY: Dates and viability Comparison: None FINDINGS: * Single live IUP at 6 weeks 1 day. [place]-rump length 4.7 mm. Heart bdsg303 bpm. Yolk sac visualized. * The gestational sac is normal in morphology. Gestational sac fluidvolume is normal for this very early gestational age. Placentalmorphology and location cannot be determined based on this earlygestational age. * Probable corpus luteal cyst maternal right ovary measuring 2.1 x 1.7 x1.9 cm. Otherwise maternal ovaries unremarkable. IMPRESSION: * Single live IUP at 6 weeks 1 day Finalized by Guy Angela MD on 02/02/2025 1:47 PM us Mesha Johnson DIRECTOR OF RESOURCE DEVELOPMENT-BIOMETRICS ANALYST [facility] US ORDERABLES Final Result from Last 3 Months Insurance [place] [employer] Care Teams Jump Iron Machine Presser Relationship Specialty Start Date End Date Florecita Ureña APRN-CNP [address] [place] [phone] PCP - General Nurse Practitioner 06/26/24
[2025-04-23 13:28] LABS: Hematocrit 32.7 % (36.0-48.0); Hemoglobin 10.8 g/dL (12.0-16.0); Immature Granulocytes Abs Auto 0.02 10^3/uL (0.00-0.03); Immature Granulocytes Pct Auto 0.2 % (0.0-0.5); Lymphocytes Absolute Auto 1.9 10^3/uL (1.2-3.8); Mean Corpuscular HGB Conc 33.0 g/dL (29.9-35.2); Mean Corpuscular Hemoglobin 27.5 pg (26.7-34.0); Mean Corpuscular Volume 83.2 fL (81.0-99.0); Platelet Count 317 10^3/uL (150-450); Red Blood Count 3.93 10^6/uL (4.20-5.40); White Blood Count 8.9 10^3/uL (4.0-11.0)
[2025-04-23 13:51] LABS: Cannabinoid Screen Urine NEGATIVE (NEGATIVE); Methamphetamines Screen Urine NEGATIVE (NEGATIVE); Tricyclic Antidepressant Urine NEGATIVE (NEGATIVE)
[2025-04-24 12:08] LABS: Rapid Plasma Reagin, Quant Non Reactive titer (NonRea<1:1)
== END 2025-04-23 12:46 | disposition home or self-care (01) ==
LOC: LAB 12:53
PROVIDERS: PCP Nurse Practitioner Family; Visit Provider Obstetrics & Gynecology
DX: Z34.92 Encounter for supervision of normal pregnancy, unspecified, second trimester (principal); Z3A.15 15 weeks gestation of pregnancy
CPT/HCPCS: 36415; 80307; 83036; 85025; 86592; 86762; 86803; 86850; 86900; 86901; 87086; 87340; 87389

== ENCOUNTER 2025-07-02 08:49 | Outpatient (OUT) | payer OTHER, SELFPAY ==
[2025-07-02 09:48] LABS: Hematocrit 32.8 % (36.0-48.0); Hemoglobin 10.5 g/dL (12.0-16.0); Immature Granulocytes Abs Auto 0.02 10^3/uL (0.00-0.03); Immature Granulocytes Pct Auto 0.2 % (0.0-0.5); Lymphocytes Absolute Auto 1.5 10^3/uL (1.2-3.8); Mean Corpuscular HGB Conc 32.0 g/dL (29.9-35.2); Mean Corpuscular Hemoglobin 26.8 pg (26.7-34.0); Mean Corpuscular Volume 83.7 fL (81.0-99.0); Platelet Count 301 10^3/uL (150-450); Red Blood Count 3.92 10^6/uL (4.20-5.40); White Blood Count 8.2 10^3/uL (4.0-11.0)
[2025-07-02 10:16] LABS: Glucose 1 Hour 115 mg/dL (<130)
== END 2025-07-02 08:50 | disposition home or self-care (01) ==
LOC: LAB 07-04 11:55
PROVIDERS: PCP Nurse Practitioner Family; Visit Provider Obstetrics & Gynecology
DX: Z13.1 Encounter for screening for diabetes mellitus (principal)
CPT/HCPCS: 36415; 82950; 85025

== ENCOUNTER 2025-09-05 19:53 | Outpatient (REF) | payer OTHER, SELFPAY ==
--- OUTSIDE RECORDS SUMMARY | 2025-09-05 10:30 | XMS_ITS | Encounter Summary ---
Author Organization [facility] Address [address] [place] [address] Care Team Providers Care Video Game Designer Name Role Phone Florecita Ureña MD Primary Care Provider [phone] Encounter Details DateTypeDepartmentCare Team (Latest Contact Info)Mlydgosywwx74/10/2025 10:30 AM ESTAncillary Procedure LEXUS ARDON [address] [place] [address] H/O pre-eclampsia in prior , currently ([facility]) Social History Tobacco UseTypesPacks/DayYears UsedDateSmoking Tobacco: Never AssessedPHQ-2 AnswerDate RecordedPatient Health Questionnaire-2 Ronba243 Estimated Date of FvpvwqpyQoftkeakRav31/01/2026Based on Ultrasound, FHR- 117Sex and Gender InformationValueDate RecordedSex Assigned at BirthNot on fileLegal MkbXyubdj91/15/2023 11:47 PM EDTGender IdentityNot on fileSexual OrientationNot on filedocumented as of this encounter Plan of Treatment DateTypeDepartmentCare Team (Latest Contact Info)Lqsqbfgemjx38/08/2026 10:20 AM ESTConsult [facility] [address] [place] [address] Ravindra Chandler DO [address], [place] [phone] NameTypePriorityAssociated DiagnosesDate/TimeUS OB follow up transabdominal approachImagingRoutine H/O pre-eclampsia in prior , currently ([facility]) 09/05/2025 10:53 AM ESTdocumented as of this encounter Visit Diagnoses Diagnosis H/O pre-eclampsia in prior , currently ([facility]) documented in this encounter Care Teams Team MemberRelationshipSpecialtyStart DateEnd Date Florecita Ureña MD [address] [place] [address], [facility] [address], [place] [address] PCP - GeneralFamily Medicine04/10/25documented as of this encounter
--- OUTSIDE RECORDS SUMMARY | 2025-09-05 10:50 | XMS_ITS | Encounter Summary ---
Author Organization [facility] Address [address] [place] [address] Care Team Providers Care Excel Vba Developer Name Role Phone Florecita Ureña MD Primary Care Provider [phone] Reason for Visit * ReasonCommentsRoutine Visit Encounter Details DateTypeDepartmentCare Team (Latest Contact Info)Zcjnhmuvrem25/10/2025 10:50 AM ESTRoutine [facility] [facility] [address] [place] [address] Ravindra Chandler DO [address] [facility] [address] [place], [place] [phone] Upper respiratory tract infection, unspecified type (Primary Dx); Third trimester ([facility]); 36 weeks gestation of ([facility]) Social History Tobacco UseTypesPacks/DayYears UsedDateSmoking Tobacco: Never AssessedPHQ-2 AnswerDate RecordedPatient Health Questionnaire-2 Vvhdc452 Estimated Date of TnolmzufYxztqdlaOex24/01/2026ased on Ultrasound, FHR- 117Sex and Gender InformationValueDate RecordedSex Assigned at BirthNot on fileLegal HufJhsqhf51/15/2023 11:47 PM EDTGender IdentityNot on fileSexual OrientationNot on filedocumented as of this encounter Last Filed Vital Signs Vital SignReadingTime TakenCommentsBlood Decafjcs283/[address]11/06/2024 11:08 AM EST Pulse--Temperature--Respiratory Rate--Oxygen Saturation--Inhaled Oxygen Concentration--Qbmlvf980 kg (286 lb 4 oz)09/05/2025 11:08 AM [...] mg, Every 8 hours PRN Prenat w/o N-ZxGxa-Ufow-FA-DHA (TriStart DHA) 31-0.6-0.4-200 MG capsule 1 capsule, Daily RT witch keya-glycerin (Tucks) pad Topical, As needed ALLERGIES No Known Allergies PROBLEMS Active Ambulatory Problems Diagnosis Date Noted No Active Ambulatory Problems Resolved Ambulatory Problems Diagnosis Date Noted No Resolved Ambulatory Problems Past Medical History: Diagnosis Date Anxiety Bipolar disorder (HCC) Depression Pre-eclampsia ([facility]) HISTORY PAST MEDICAL HISTORY SOCIAL HISTORY Past Medical History: Diagnosis Date Anxiety Bipolar disorder (HCC) Depression Pre-eclampsia ([facility]) Social History Tobacco Use Smoking status: [...] is . Assessment/Plan ICD-10-CM 1. Third trimester ([facility]) Z34.93 CULTURE, GROUP B STREP WITH SUSCEPTIBLITY CULTURE, GROUP B STREP WITH SUSCEPTIBLITY POCT urinalysis dipstick manually resulted 2. 36 weeks gestation of ([facility]) Z3A.36 Assessment/Plan Return OB: Patient presents today [...] Plan of Treatment DateTypeDepartmentCare Team (Latest Contact Info)Yxvyrovnhib67/08/2026 10:20 AM ESTConsult [facility] [address] [place] [phone] Ravindra Chandler DO [address] [facility] [place] [address] NameTypePriorityAssociated DiagnosesOrder ScheduleCULTURE, GROUP B STREP WITH SUSCEPTIBLITYLabRoutine Third trimester ([facility]) Expected: 09/05/2025, Expires: 09/05/2026documented as of this encounter Procedures Procedure NamePriorityDate/TimeAssociated DiagnosisCommentsPOCT URINALYSIS UUCLIGMSHjahsse28/10/2025 11:16 AM EST Third trimester ([facility]) documented in this encounter Results * [...] MemberRelationshipSpecialtyStart DateEnd Date Florecita Ureña MD [address] [facility] [address] [place] [address] PCP - GeneralFamily Medicine04/10/25documented as of this encounter
--- OUTSIDE RECORDS SUMMARY | 2025-09-05 19:57 | XMS_ITS | Encounter Summary ---
Author Organization [facility] Address [address] [place] [address] Care Team Providers Care Tree Inspector Name Role Phone Florecita Ureña MD Primary Care Provider Reason for Visit * ReasonOnset DateCommentsError (VOID this visit)08/31/2025 Encounter Details DateTypeDepartmentCare Team (Latest Contact Info)Iftdxregnjv06/05/2025Telephone [facility] ARDON [address] [place] [place] [address] Thelma Iglesias MA Error (VOID this visit) Social History Tobacco UseTypesPacks/DayYears UsedDateSmoking Tobacco: Never AssessedPHQ-2 AnswerDate RecordedPatient Health Questionnaire-2 Khlni419 Estimated Date of PcgbcfudDztswdxsBxj24/01/2026Based on Ultrasound, FHR- 117Sex and Gender InformationValueDate RecordedSex Assigned at BirthNot on fileLegal KssIofivy73/15/2023 11:47 PM EDTGender IdentityNot on fileSexual OrientationNot on filedocumented as of this encounter Plan of Treatment DateTypeDepartmentCare Team (Latest Contact Info)Gmmicfumyxc93/08/2026 10:20 AM ESTConsult LEXUS ARDON [address] [place] [place] [address] Ravindra Chandler DO [address] [place], [place] [phone] documented as of this encounter Visit Diagnoses Not on filedocumented in this encounter Care Teams Team MemberRelationshipSpecialtyStart DateEnd Date Florecita Ureña MD [address], [address] [place] [phone] PCP - GeneralFamily Medicine04/10/25documented as of this encounter
--- OUTSIDE RECORDS SUMMARY | 2025-09-05 19:58 | XMS_ITS ---
Author Organization [facility] Source Produ ction (ClinicalSummary Clone) Address Unknown Care Team Providers Care Precinct Police Sergeant Name Role Phone Unavailable Primary Care Physician Unavailab le Results * [UNITY] ANEUPLOIDY NIPT Performed by: GrownOut Component Value Range Date Fraction 8.5% 03/12/2025 02:19 am CMX93f46.2 MicrodeletionLOW RISK <1 in , 02:19 am UTCSex Chromosome AneuploidyNOT NOEYZJIB31/16/2025 02:19 am UTCMonosomy XLOW RISK <1 in 10, 02:19 am UTCTrisomy 13LOW RISK <1 in 10,000 03/12/2025 02:19 am UTCTrisomy 18LOW RISK <1 in 10, 02:19 am UTC Trisomy 21LOW RISK <1 in 10, 02:19 am UTCFetal FkiOWOQPB20/16/2025 02:19 am UTCPregnancy JpcijojbmVQVPWJSLF27/16/2025 02:19 am UTCFor detailed report, see PDFSee PDF03/12/2025 02:19 am UTC03/12/2025 02:19 am UTC Social History Observation Value Start Date End Date
--- OUTSIDE RECORDS SUMMARY | 2025-09-05 19:58 | XMS_ITS | Clinical Summary ---
Author Organization [employer] tem Address [id number] [address] [place] [address] Care Team Providers Care Drill Instructor Name Role Phone Florecita Ureña APRN-COMMAND CENTER ANALYST Primary Care Provider Allergies No known active allergies Medications MedicationSigDispense QuantityRefillsLast FilledStart DateEnd DateStatus 10-znbo-zeelkx 9-dha 31 mg iron- 1 mg-200 mg capsule Indications:First trimester pregnancyTake 1 capsule by mouth in the morning. 90 capsule 5Active ondansetron (ZOFRAN) 4 mg tablet Indications:Nausea/vomiting in pregnancyTake 1 tablet (4 mg total) by mouth every 8 (eight) hours as needed for nausea or vomiting. 30 tablet 5Active acetaminophen (TYLENOL EXTRA STRENGTH) 500 mg tablet Take 2 tablets (1,000 mg total) by mouth every 6 (six) hours as needed for pain. Active doxylamine (UNISOM) 25 mg tablet Indications:Nausea/vomiting in pregnancyTake 1 tablet (25 mg total) by mouth nightly as needed for sleep or nausea. 30 tablet 5Active Active Problems ProblemNoted DateDiagnosed DateMaternal varicella, non-fnekkw9102/11/2025Rubella equivocal status, smjnganzra08/18/2025Vapes nicotine containing substance 02/06/2025Marijuana use during lwtaxxrgn14/13/2025Family history of autism 02/06/2025 Overview (02/06/2025): 3 of 4 children are autistic, fourth child is getting tested. Nausea/vomiting in juihpbcnn19/13/2025Obesity affecting epajijfrm51/13/2024High ugjcaecahtc24/ Overview (02/06/2025): Just found out ADHD (attention deficit hyperactivity disorder) Overview (10/18/2024): Child AnxietyBipolar disorderDepressionHistory of gestational hypertension Estimated Date of VprhhvwgKzaaogumQvl59/01/2026ased on Ultrasound Encounters DateTypeDepartmentCare FxxqUleufqhylzv54/02/2025Telephone [facility] [address] [place] [address] [address] [place] [address] Elsy Samuel, STACEY Appointmentfrom Last 3 Months Family History Medical HistoryRelationNameCommentsHeart diseaseFatherSteve forneyHypertension MotherLaura englehartRelationNameStatusCommentsFatherSteve forneyAliveMother Geri englehartDeceased Social History Tobacco UseTypesPacks/DayYears UsedDateSmoking Tobacco: ArwgrbUfiwrbrblb49.7 Started: 04/26/2024Vaping/E-cigarettesSmokeless Tobacco: Never Tobacco Cessation:Counseling Given: Not Answered Alcohol UseStandard Drinks/WeekCommentsNo0 (1 standard drink = 0.6 oz pure alcohol)Overall Financial Resource Strain (CARDIA)AnswerDate RecordedHow hard is it for you to pay for the very basics like food, housing, medical care, and heating?Patient rddmedkq38/04/2025PHQ-2AnswerDate RecordedTotal Score10 05/23/2025PRAPARE - TransportationAnswerDate RecordedIn the past 12 months, has lack of transportation kept you from medical appointments or from getting medications?No10/02/2024In the past 12 months, has lack of transportation kept you from meetings, work, or from getting things needed for daily living?No 10/02/2024Housing InstabilityAnswerDate RecordedAre you worried or concerned that in the next two months you may not have stable housing that you own, rent or stay in as a part of a household?No02/28/2025hildcareAnswerDate RecordedDo problems getting children's ministries director make it difficult for you to work or study?No 02/28/2025EmploymentAnswerDate VrktpcpvHdnoesruicXzxnmsy57/11/2019Hunger ScreeningAnswerDate RecordedWithin the past 12 months we worried whether our food would run out before we got money to buy more.Never True05/23/2025Within the past 12 months the food we bought just didn't last and we didn't have money to get more.Never True05/23/2025Purpose - LifeAnswerDate RecordedPurpose and direction in wkkpEeyhyzh79/10/2021Estimated Date of DeliveryCommentsYes 6Based on UltrasoundSex and Gender InformationValueDate RecordedSex Assigned at BirthNot on fileLegal NasSqvbor52/04/2015 7:08 PM EDTGender Identity Not on fileSexual OrientationNot on file Last Filed Vital Signs Vital SignReadingTime TakenCommentsBlood Kfntzvra696/78005/23/2025 8:08 AM EDT Wdwol360405/23/2025 8:08 AM HLPHjmnonqjttn01.9 ??C (98.4 ??F)05/23/2025 8:08 AM EDTRespiratory Fnej269105/06/2021 8:33 PM EDTOxygen Wtrhwncajq42%05/23/2025 8:08 AM EDTInhaled Oxygen Concentration--Hcamwk718.7 kg (268 lb 6.4 oz)05/23/2025 8:08 AM JPEGpzrlv930.4 cm (5' 3.54 )05/23/2025 8:08 AM EDTBody Mass Index46.74 05/23/2025 8:08 AM EDT Plan of Treatment DateTypeDepartmentCare Team (Latest Contact Info)Kmeredsawgn56/22/2025 8:20 AM ESTOffice Visit [facility] [address] [place] [phone] Florecita Ureña APRN-DAVID [address] [place] [address], [facility] [place] [place] [address] Health MaintenanceDue DateLast DoneCommentsDTaP,Tdap and Td Vaccines (7 - Td or Tdap), 05/18/2003, 06/16/1999, Additional history exists Influenza Sxpmcbr7705/28/2025dult BMI Follow Up Plan509/SV ( or age 60+ yrs) (1 - Risk 1-dose series)08/02/2025du BMI Oafcwangk02/Depression Nmidqicjn69/Tobacco Xbqgahrgc49Pap Smear/01/2025, 08/16/2019, 08/09/2018 Medical Devices Not on file Procedures Procedure NamePriorityDate/TimeAssociated DiagnosisCommentsTHIN PREP PAP TEST Vidpovj4003/01/2025 12:07 PM EDT Cervical smear, as part of routine gynecological examination from Last 3 Months or Most Recently Relevant to Health Maintenance Results * Thin Prep Pap Test (03/01/2025 12:07 PM EDT)ComponentValueRef RangeTest Method Analysis TimePerformed AtPathologist SignatureCase ReportGynecologic Cytology Report ? Case: [id number] ? Authorizing Provider: ??CATRACHO Erazo ?? Collected: ? 03/01/2025 1207 ? Ordering Location: ? [facility] ? Received: ?03/01/2025 1207 ? Obstetrics/Gynecology ? First Screen: ?Samantha Oliveira, CT(ASCP) ? Rescreen: ?Ronnie Kay, ? CT(ASCP) ? Specimen: ?Thin Prep Pap, Cervix ? 03/05/2025 3:12 PM [facility] LABORATORYSpecimen Adequacy Satisfactory for evaluation, endocervical/transformation zone component present 03/05/2025 3:12 PM [facility] LABORATORYInterpretationNEGATIVE FOR INTRAEPITHELIAL LESION OR MALIGNANCYNEGATIVE FOR INTRAEPITHELIAL LESION OR MALIGNANCY, UNSATISFACTORY, EPITHELIAL CELL ABNORMALITY, GLANDULAR EPITHELIAL CELL ABNORMALITY. , SQUAMOUS EPITHELIAL CELL ABNORMALITY, NO DIAGNOSIS RENDERED. 03/05/2025 3:12 PM [facility] at 1512 EDTAdditional InformationThe Pap test is a screening test with an inherent, but low, probability of error. The Pap test is primarily effective for the diagnosis and prevention of squamous cell carcinoma. Regular screening iscritical for prevention. ThinPrep liquid-based slides, which meet the Senior Genetic Counselor criteria for automated screening, have been screened by the ThinPrep Imaging System (as of 06/13/07) along with an additional manual rescreening by a clinical studies specialist and, if indicated, by a pathologist.03/05/2025 3:12 PM [facility] LABORATORYClinical Hwjojaspkmbjvwo32/09/2025 3:12 PM [facility] LABORATORYEmbedded Ubkmrv8603/05/2025 3:12 PM [facility] LABORATORYSpecimen (Source)Anatomical Location / LateralityCollection Method / VolumeCollection TimeReceived TimeThinPrep cytology technique (qualifier value) Cervix uteri structure / Djiiwup8903/01/2025 12:07 PM EDT03/01/2025 12:07 PM EDT Narrative Authorizing ProviderResult TypeResult StatusMesha Johnson FARMHAND-COMMAND CENTER ANALYST PATHOLOGY/CYTOLOGY ORDERABLESFinal ResultPerforming OrganizationAddress City/State/ZIP CodePhone Number [facility] [address] [place] [address], from Last 3 Months or Most Recently Relevant to Health Maintenance Insurance Care Teams Team MemberRelationshipSpecialtyStart DateEnd Florecita Ureña APRN-COMMAND CENTER ANALYST [address] [place] [phone] PCP - GeneralNurse Practitioner06/26/24
--- OUTSIDE RECORDS SUMMARY | 2025-09-05 19:58 | XMS_ITS | Clinical Summary ---
Author Organization [facility] Healthcare Address [address] [place] [address] Care Team Providers Care Chemical Lab Technician Name Role Phone Florecita Ureña MD Primary Care Provider [phone] Allergies No known active allergies Medications MedicationSigDispense QuantityRefillsLast FilledStart DateEnd DateStatus ondansetron (Zofran) 4 MG tablet Take 4 mg by mouth every 8 (eight) hours if [id number] Prenat w/o P-FsCrj-Arqs-FA-DHA (TriStart DHA) 31-0.6-0.4-200 MG capsule Take 1 capsule by mouth in the morning.5Active Doxylamine Succinate, Sleep, (UNISOM PO) Take 1 tablet by mouth at bedtimeActive buPROPion SR (Wellbutrin SR) 150 MG 12 hr tablet Indications:Vapes nicotine containing substanceTake 1 tablet (150 mg) by mouth at bedtime 30 tablet 11004/10/907888/6Active fluticasone (Flonase) 50 MCG/ACT nasal spray Indications:Sinus congestionAdminister 1 spray into each nostril Daily Shake gently. Before first use, prime pump. After use, clean tip and replace cap. 16 g 04/25/438309/6Active doxylamine (Unisom) 25 MG tablet Indications:Other insomniaTake 1 tablet (25 mg) by mouth as needed at bedtime for sleep 30 tablet 5Active Doxylamine Succinate, Sleep, (UNISOM PO) Take by mouthActive witch keya-glycerin (Tucks) pad Indications:Hemorrhoids, unspecified hemorrhoid typeApply topically if needed for irritation 40 each 5Active azithromycin (Zithromax Z-Jono) 250 MG tablet Indications:Upper respiratory tract infection, unspecified typeAs directed 6 tablet 5Active amoxicillin (Amoxil) 500 MG tablet Indications:Upper respiratory tract infection, unspecified typeTake 1 tablet (500 mg) by mouth in the morning and 1 tablet (500 mg) in the evening and 1 tablet (500 mg) before bedtime. Do all this for 7 days. 21 tablet 5Active Encounters DateTypeDepartmentCare AplgOuwgmpshqzb69/10/2025 10:50 [place] [address] Ravindra Chandler DO Upper respiratory tract infection, unspecified type (Primary Dx); Third trimester ([facility]); 36 weeks gestation of ([facility])09/05/2025 10:30 AM ESTAncillary Procedure NOMS Amanda ARDON [address] [place], [place] [address] [place] [address] H/O pre-eclampsia in prior , currently ([facility])08/31/20[place] [address] Thelma Iglesias MA Error (VOID this visit)08/14/2025 9:30 [place] [phone] Ravindra Chandler DO 33 weeks gestation of ([facility]); Third trimester ([facility]); Upper respiratory tract infection, unspecified type; Hemorrhoids, unspecified hemorrhoid type; H/O pre-eclampsia in prior , currently ([facility])08/14/2025 [place] [address] Ravindra Chandler DO 08/09/2025Patient Outreach NOMS [facility] [address] [place] [address] April Mahmood LPN 08/06/2025 9:30 AM ESTAncillary Procedure NOMS Amanda Munoz [facility] [place] [address] Excessive growth affecting management of in third trimester, single or unspecified fetus ([facility])07/30/2025 9:20 AM ESTRoutine NOMS Amanda PENNINGTONGYFerny [address] [facility] [place] [address] April Rowley PA BV (bacterial vaginosis) (Primary Dx); Third trimester ([facility]); 31 weeks gestation of ([facility])07/30/2025amboo flowsheet NOMS Amanda OBGYFerny Munoz [facility] [place] [address] April Rowley PA 07/24/2025Telephone NOMS Amanda OBNEW Munoz [facility] [place] [address] Saundra Ríos MA 07/16/2025 11:00 AM EDTRoutine NOMS Amanda Munoz [facility] [place] [address] Ravindra Chandler DO 29 weeks gestation of ([facility]); Third trimester ([facility])07/16/2025 10:30 AM EDTAncillary Procedure NOMS Amanda OBGYN Alexander [facility] [place] [phone] 27 weeks gestation of ([facility])07/16/20252697Vbvmey02/15/2025Patient Outreach NOMS [facility] [address] [place] [address] April Mahmood LPN 07/02/2025 10:50 AM EDTRoutine NOMS Amanda Munoz [facility] [place] [address] Elsy Rooney NP related fatigue in second trimester ([facility]) (Primary Dx); 27 weeks gestation of ([facility]); Second trimester ([facility]); Anemia, unspecified type07/02/2025linisync Result Encounter NOMS External Department Unsolicited Ravindra Chandler, DO 07/02/20259962Qehnrc09/25/2025Telephone NOMS Amanda ARDON [address] [place] [address] [place] [address] Ravindra Chandler, 06/13/2025Patient Outreach [facility] [address] [place] [address] April Mahmood LPN 06/08/2025bstract [facility] [address] [place] [address] April Mahmood LPN 06/07/2025 3:20 PM EDTRoutine NOMS Amanda ARDON [address] [place] [address] [place] [address] Elsy Rooney NP Second trimester ([facility]); 24 weeks gestation of ([facility]); Diabetes mellitus screening; Screen for STD (sexually transmitted disease)06/07/2025 2:30 PM EDTAncillary Procedure NOMS Amanda ARDON [address] [place] [address] [place] [address] Low-lying placenta ([facility])06/07/2025External Result Encounter [facility] External Department Unsolicited Elsy Rooney NP 06/07/2025Travelfrom Last 3 Months Social History Tobacco UseTypesPacks/DayYears UsedDateSmoking Tobacco: Never AssessedPHQ-2 AnswerDate RecordedPatient Health Questionnaire-2 [id number] Estimated Date of OefvcunjCnkhdcseEjn29/01/2026ased on Ultrasound, FHR- 117Sex and Gender InformationValueDate RecordedSex Assigned at BirthNot on fileLegal DwwJsnhbc85/15/2023 11:47 PM EDTGender IdentityNot on fileSexual OrientationNot on file Last Filed Vital Signs Vital SignReadingTime TakenCommentsBlood Txlaicgg156/8012 11:08 AM EST Pulse--Temperature--Respiratory Rate--Oxygen Saturation--Inhaled Oxygen Concentration--Xejghl501 kg (286 lb 4 oz)09/05/2025 11:08 AM JJCToqtdt089.6 cm (5' 4 )04/10/2025 10:22 AM EDTBody Mass Index49.13004/10/2025 10:22 AM EDT Plan of Treatment DateTypeDepartmentCare Team (Latest Contact Info)Hvtfwgejicb92/08/2026 10:20 AM ESTConsult NOMS Amanda OBGYN [address] [facility] [place] [phone] Ravindra Chandler, [address] [place] [address] Procedures Procedure NamePriorityDate/TimeAssociated DiagnosisCommentsPOCT URINALYSIS AWFHRQXLNgvwyyu45/10/2025 11:16 AM EST Third trimester ([facility]) POCT URINALYSIS PRLWCCGYPqdtypy08/18/2025 9:42 AM EST 33 weeks gestation of ([facility]) Third trimester ([facility]) US OB FOLLOW UP TRANSABDOMINAL FDYIKNFLJvtcyef07/10/2025 9:49 AM EST Excessive growth affecting management of in third trimester, single or unspecified fetus ([facility]) POCT URINALYSIS XIOTNSTEVguiflo89/03/2025 9:45 AM EST 31 weeks gestation of ([facility]) POCT URINALYSIS NGEDTSAWPlbagic65/20/2025 11:11 AM EDT 29 weeks gestation of ([facility]) US OB FOLLOW UP TRANSABDOMINAL WOFDJFXGDfoomwe18/20/2025 11:01 AM EDT 27 weeks gestation of ([facility]) POCT URINALYSIS JIFXDUYSObfhmcy50/06/2025 10:21 AM EDT 27 weeks gestation of ([facility]) GLUCOSE 1 BFUUMkxgoqo32/06/2025 9:44 AM EDT ALL CBC WITH AUTO PBTQPmslapm86/06/2025 9:44 AM EDT RECURRENT VAGINITIS (HTRX)Vtufnxp0106/07/2025 3:51 PM EDT POCT URINALYSIS EPMBUBPFLlbcyfx24/11/2025 3:41 PM EDT Diabetes mellitus screening US OB LIMITED 1+ XPYPIFWIujjpag44/11/2025 3:18 PM EDT Low-lying placenta ([facility]) from Last 3 Months Results * POCT urinalysis dipstick manually resulted (09/05/2025 11:16 AM EST) Only the most recent of6 resultswithin the time period is included. ComponentValueRef RangeTest MethodAnalysis TimePerformed AtPathologist Signature Color, UAYellowClarity, UAClearGlucose, UANegativeNegative - 2000(110) ++++ mg/dLBilirubin, UANegativeNegative - 4(70) +++ mg/dLKetones, UANegativeNegative - 160(16) ++++ mg/dLSpec Grav, UA1.0151 - 1.03Blood, UANegativeNegative - 50 Jose/mcLpH, UA6.05 - 9Protein, UANegativeNegative - 2000(20) ++++ mg/dL Urobilinogen, UA0.20.2 - 12 mg/dLLeukocytes, UANegativeNegative - 500+++ Jai/mcL Nitrite, UANegativeNegative - PositiveSpecimen (Source)Anatomical Location / LateralityCollection Method / VolumeCollection TimeReceived FyfpLkkwt13/10/2025 11:16 AM EST Narrative Authorizing ProviderResult TypeResult StatusCorey Geraldine DOPOINT OF CARE TEST ENTER/EDIT ORDERABLESFinal Result * US OB follow up transabdominal approach (08/06/2025 9:49 AM EST) Only the most recent of2 resultswithin the time period is included. Anatomical RegionLateralityModalityBodyUltrasoundSpecimen (Source)Anatomical Location / LateralityCollection Method / VolumeCollection TimeReceived Time 08/08/2025 8:25 AM EST Impressions 08/08/2025 8:45 AM EST Single, live intrauterine , current sonographic age of 34 weeks and3 days, with an estimated date of delivery of September 14, 2025. * ??Estimated Weight (g) by Percentile is based upon an accurate estimated age based onlast menstrual period. ?? TRANSCRIBED BY: ? ELECTRONICALLY SIGNED BY: Naresh Siu MD Narrative 08/08/2025 8:45 AM EST FINDINGS: A single, live intrauterine is present with normal cardiac rate of 144 ??beats per minute. Normal activity and amniotic fluid volume. Amniotic fluid index is ?? 17 cm. ??Morphology is grossly normal. The current sonographic age is 34 ??weeks and 3 ??days, based on the following measurements: ?BPD ? 8.5 cm (34 weeks, 2 days) ?Head Circumference ?31.1cm (34 weeks, 5 days) ?Abdominal Circumference ?30.5cm (34 weeks, 3 days) ?Femur Length ? 6.6cm (34 weeks,0 ??days) ?Presentation ? Cephalic ? Weight (g) by Percentile ??89.7 % * These measurements result in an estimated date of delivery of ??September 14, 2025. ?? The current estimated weight is ??2404 ??grams (5 ??pound, 5 ??ounces). ?? Comparison made with prior examination of July 16, 2205 at that time weight by percentile was 91.6% and delivery as September 15, 2025. Procedure Note Naresh Siu MD - 08/08/2025 FINDINGS: A single, live intrauterine is present with normal cardiacrate of 144 beats per minute. Normal activity and amniotic fluidvolume. Amniotic fluid index is 17 cm. Morphology is grossly normal.The current sonographic age is 34 weeks and 3 days, based on thefollowing measurements: BPD 8.5 cm (34 weeks, 2 days) Head Circumference 31.1cm (34 weeks, 5 days) Abdominal Circumference 30.5cm (34 weeks, 3 days) Femur Length 6.6cm (34 weeks,0 days) Presentation Cephalic Weight (g) by Percentile 89.7 % * These measurements result in an estimated date of delivery of 2024. The current estimated weight is 2404 grams (5 pound,5 ounces). Comparison made with prior examination of July 16, 2205 at that timefetal weight by percentile was 91.6% and delivery as September 15, 2025. IMPRESSION: Single, live intrauterine , current sonographic age of 34 weeksand3 days, with an estimated date of delivery of September 14, 2025. * Estimated Weight (g) by Percentile is based upon an accurateestimated age based on last menstrual period. TRANSCRIBED BY: ELECTRONICALLY SIGNED BY: Naresh Siu MD Authorizing ProviderResult TypeResult StatusElsy Rooney NPIMG OB US PROCEDURESFinal Result * GLUCOSE 1 HOUR (07/02/2025 9:44 AM EDT)ComponentValueRef RangeTest Method Analysis TimePerformed AtPathologist SignatureGLUCOSE 1 TFXH645<130 mg/dLTBH Specimen (Source)Anatomical Location / LateralityCollection Method / Volume Collection TimeReceived Time07/02/2025 9:44 AM EDT1 9:44 AM EDT Narrative CLINIS[facility]NC - 07/02/2025 10:24 AM EDT Authorizing ProviderResult TypeResult StatusCorey Geraldine DOLAB BLOOD ORDERABLES Final ResultPerforming OrganizationAddressCity/State/ZIP CodePhone Number CLINISYNC [facility] * (ABNORMAL) ALL CBC WITH AUTO DIFF (07/02/2025 9:44 AM EDT)ComponentValueRef RangeTest MethodAnalysis TimePerformed AtPathologist SignatureFAIRLAWN REHABILITATION [facility] WBC8.24.0 - 11.0 10 3/uLTBHTBH RBC3.92(L)4.20 - 5.40 10 6/uLTBHTBH HGB10.5(L)12.0 - 16.0 g/dLTBHTBH HCT32.8(L)36.0 - 48.0 %TBHTBH MCV83.781.0 - 99.0 fLTBHTBH MCH26.8 26.7 - 34.0 pgTBHTBH MCHC32.029.9 - 35.2 g/dLTBHTBH RDW14.511.0 - 15.0 %TBHTBH MSV515477 - 450 10 3/uLTBHTBH MPV9.59.5 - 13.5 fLTBHNEUTROPHILS PERCENT AUTO 73.343.0 - 75.0 %TBHLYMPHOCYTES PERCENT AUTO18.1(L)20.5 - 60.0 %TBHMONOCYTES PERCENT AUTO6.71.7 - 12.0 %TBHTBH EO %1.30.9 - 7.0 %TBHBASOPHILS PERCENT AUTO 0.40.2 - 2.0 %TBHIMMATURE GRANULOCYTES PCT AUTO0.20.0 - 0.5 %TBHNEUTROPHILS ABSOLUTE AUTO6.01.4 - 6.5 10 3/uLTBHLYMPHOCYTES ABSOLUTE AUTO1.51.2 - 3.8 10 3/uLTBHMONOCYTES ABSOLUTE AUTO0.60.3 - 0.8 10 3/uLTBHTBH EO #0.10.0 - 0.7 10 3/uLTBHBASOPHILS ABSOLUTE AUTO0.00.0 - 0.1 10 3/uLTBHIMMATURE GRANULOCYTES ABS AUTO0.020.00 - 0.03 10 3/uLTBHSpecimen (Source)Anatomical Location / LateralityCollection Method / VolumeCollection TimeReceived Time07/02/2025 9:44 AM EDT1 9:44 AM EDT Narrative [facility]IN[facility]NC - 07/02/2025 9:49 AM EDT Authorizing ProviderResult TypeResult StatusCorey Geraldine DOCLINISYNCFinal Result Performing OrganizationAddressCity/State/ZIP CodePhone Number CLINISYNC [facility] * RECURRENT VAGINITIS (HTRX) (06/07/2025 3:51 PM EDT)ComponentValueRef RangeTest MethodAnalysis TimePerformed AtPathologist SignatureATOPOBIUM THOYPCY697.961 - 24.689 ppm06/08/2025 9:39 AM EDTHealthTrackRx at LabPortATOPOBIUM VAGINAENot Fqkmasbv92.961 - 24.689 ppm06/08/2025 9:39 AM EDTHealthTrackRx at LabPortBVAB 2,3 (BACTERIAL VAGINOSIS ASSOCIATED BACTERIA 2, 3); MOBILUNCUS FUK042.961 - 24.689 ppm06/08/2025 9:39 AM EDTHealthTrackRx at LabPortBVAB 2,3 (BACTERIAL VAGINOSIS ASSOCIATED BACTERIA 2, 3); MOBILUNCUS SPPNot Swjsojqz41.961 - 24.689 ppm06/08/2025 9:39 AM EDTHealthTrackRx at LabPortCANDIDA ALBICANS, PARAPSILOSIS, NFZBATSXCI345.000 - 30.347 ppm06/08/2025 9:39 AM EDT [facility] at LabPortCANDIDA ALBICANS, PARAPSILOSIS, TROPICALISNot Detected 23.000 - 30.347 ppm06/08/2025 9:39 AM EDTHealthTrackRx at LabPortCANDIDA OVWHNHGW503.000 - 31.618 ppm06/08/2025 9:39 AM EDTHealthTrackRx at LabPort DOMINGA GLABRATANot Oacoasdb26.000 - 31.618 ppm06/08/2025 9:39 AM EDT [facility] at LabPortCANDIDA WTCUFZ407.000 - 30.873 ppm06/08/2025 9:39 AM EDTHealthTrackRx at LabPortCANDIDA KRUSEINot Opztbkcn21.000 - 30.873 ppm 06/08/2025 9:39 AM EDTHealthTrackRx at LabPortCHLAMYDIA SJOWFTVJPSU099.000 - 31.586 ppm06/08/2025 9:39 AM EDTHealthTrackRx at LabMedical [facility] Of Southern IndianaCHLAMYDIA TRACHOMATIS Not Wyoafsps30.000 - 31.586 ppm06/08/2025 9:39 AM EDTHealthTrackRx at LabPort GARDNERELLA MMHRMGGNA032.961 - 24.689 ppm06/08/2025 9:39 AM EDTHealthTrackRx at LabMedical Center Of Southern IndianaGARDNERELLA VAGINALISNot Eynhxwrk81.961 - 24.689 ppm06/08/2025 9:39 AM EDTHealthTrackRx at LabPortMEGASPHAERA (TYPES 1, 2)019.961 - 24.689 ppm 06/08/2025 9:39 AM EDTHealthTrackRx at LabPortMEGASPHAERA (TYPES 1, 2)Not Rjeluxln23.961 - 24.689 ppm06/08/2025 9:39 AM EDTHealthTrackRx at LabPort NEISSERIA ZKBNQXTGEET082.000 - 32.587 ppm06/08/2025 9:39 AM EDTHealthTrackRx at [facility] HospitalNEISSERIA GONORRHOEAENot Hryhnytr48.000 - 32.587 ppm06/08/2025 9:39 AM EDTHealthTrackRx at LabPortTRICHOMONAS ZKAWLEIMI942.000 - 31.995 ppm 06/08/2025 9:39 AM EDTHealthTrackRx at LabMedical Center Of Southern IndianaTRICHOMONAS VAGINALISNot Mzlzpybv93.000 - 31.995 ppm06/08/2025 9:39 AM EDTHealthTrackRx at [facility] MYCOPLASMA JPVIZASLSX952.961 - 24.689 ppm06/08/2025 9:39 AM EDTHealthTrackRx at LabPortMYCOPLASMA GENITALIUMNot Ihdrnkqn36.961 - 24.689 ppm06/08/2025 9:39 AM EDTHealthTrackRx at LabPortSpecimen (Source)Anatomical Location / LateralityCollection Method / VolumeCollection TimeReceived TimeTissue 06/07/2025 3:51 PM EDT06/08/2025 1:35 AM EDT Narrative Authorizing ProviderResult TypeResult StatusKrpriyank Rooney [facility] BLOOD ORDERABLESFinal ResultPerforming OrganizationAddressCity/State/ZIP CodePhone Number [facility] [address] [address] * US OB limited 1+ fetuses (06/07/2025 3:18 PM EDT)Anatomical RegionLaterality ModalityBodyUltrasoundSpecimen (Source)Anatomical Location / Laterality Collection Method / VolumeCollection TimeReceived Time06/07/2025 3:20 PM EDT Impressions 06/07/2025 3:32 PM EDT 1. Viable intrauterine, prior exam estimated age date of delivery September 26 2025 2. Posterior placenta not associated with the closed internal cervical os TRANSCRIBED BY: ? ELECTRONICALLY SIGNED BY: Naresh Siu MD Narrative 06/07/2025 3:32 PM EDT FINDINGS: Comparison May 10, 2025. Single viable intrauterine with normal cardiac activity, 155 bpm. Placenta is developing posteriorly, inferior aspect 3.5 cm from the closed internal cervical os. Procedure Note Naresh Siu MD - 06/07/2025 FINDINGS: Comparison May 10, 2025. Single viable intrauterine with normal cardiac activity, 155bpm. Placenta is developing posteriorly, inferior aspect 3.5 cm from theclosed internal cervical os. IMPRESSION: 1. Viable intrauterine, prior exam estimated age date of delivery 2024 2. Posterior placenta not associated with the closed internal cervicalos TRANSCRIBED BY: ELECTRONICALLY SIGNED BY: Naresh Siu MD Authorizing ProviderResult TypeResult StatusCorey Geraldine DOIMG OB US PROCEDURES Final Result from Last 3 Months Insurance Care Teams Team MemberRelationshipSpecialtyStart DateEnd Date Florecita Ureña MD [address] [place] [address] [facility] - [facility]
== END 2025-09-05 19:54 | disposition home or self-care (01) ==
LOC: LAB 19:53
PROVIDERS: PCP Nurse Practitioner Family; Visit Provider Obstetrics & Gynecology
DX: Z34.93 Encounter for supervision of normal pregnancy, unspecified, third trimester (principal)
CPT/HCPCS: 87081

== ENCOUNTER 2025-09-09 17:00 | Inpatient (IN) | payer OTHER, SELFPAY ==
--- OUTSIDE RECORDS SUMMARY | 2013-06-01 10:00 | XMS_ITS | Continuity of Care Document ---
Author Organization [facility] Address [address] [place] [address] Phone Care Team Providers Care Patternmaker Pressure Cast Name Role Phone Angelito Dari Unavailable Unavailable Allergies, Adverse Reactions, Alerts Substance Reaction Status Criticality No Known allergies Procedures Procedure Date PREV VISIT, NEW, AGE 12-17 PREV VISIT, NEW, AGE 12-17 Advance Directives Directive Yes / No Effective Date File Name Resuscitation Not Answered N/A N/A Life Support Not Answered N/A N/A Intubation Not Answered N/A N/A Antibiotics Not Answered N/A N/A IV Fluid Support Not Answered N/A N/A Tube Feed Not Answered N/A N/A Other Directive N/A N/A WARNING:The information contained in this section is historical and is provided for information only and does not constitute a legal document or any assurance that the information is still accurate. Please verify the information with the cyr of the legal document before using it for clinical purposes. Encounters Encounter Description Practice Location Reason(s) For Visit Diagnoses Date Provider Providers Copied on Encounter PREV VISIT, NEW, AGE 12-17 [facility], [address], [place], [id number], [place] tel:[phone] [facility] physical (work) (chief complaint)p hysical (sport) (chief complaint) Other general medical examination for administrative purposesObesity Sep-0 5-201 3 Angelito Chapin. [address], [place], [id number] , [place]. Family History Family Member Type Diagnosis Age At Onset Father Problem (finding) Alive and well Mother Problem (finding) Alive and well Payers Payer name Insurance type Covered democrat ID Authoriza tion(s) No Information Social History Type Description Quantity Date Captured Comments Alcohol Use Details Unknown Caffeine Use Details Unknown Tobacco Use Status No Information Smoking Status No Information Sex Female Vital Signs Date / Time: Height Weight BMI Pulse Rate Blood Pressure Temperature Respiratory Rate Body Surface Area Head Circumference Head Circ. Percentile Wt./Goyo. Percentile BMI percentile Pulse Ox Inhaled Ox 3:05 PM 62.00 in 181.00 lbs 35.3 5 kg/m eter (2) 67 /min 137/88 mm[Hg] 18 /min 98 Chief Complaint And Reason For Visit From encounter dated '06/01/2013 15:00'. physical (work) (chief complaint) physical (sport) (chief complaint) Reason For Referral Reason For Referral No Information History Of Present Illness Encounter Date Complaint History Of Prese nt Illness No Information Functional Status Date Functional Assessmen t No Information Instructions Date Instruction Additional Infor mation No Information Assessments Type Assessment Date No Information Mental Status Date Cognitive Assessment Normal Orientation Patient Care Teams Name Effective Dates (start - stop) Status Members No Information
--- OUTSIDE RECORDS SUMMARY | 2023-05-19 13:47 | XMS_ITS | Continuity of Care Document ---
Author Organization [facility] Address [address] [place] [address] Phone Care Team Providers Care Administrative Support Specialist Name Role Phone AAA Provider MD, Test Unavailable Unavailabl e Allergies, Adverse Reactions, Alerts Substance Reaction Status Criticality No Known Allergies Active No Inform ation Medications Medication Instructions Dosage Effective Dates (start - stop) Status Comments prednisone 20 mg tablet take 1 tablet by oral route twice a day x 5 days - Active benzonatate 100 mg capsule take 1 capsule by oral route 3 times every day as needed for cough 100 MG - Active BUCCAL TABLET - Active Procedures Procedure Date POSTOP FOLLOW-UP VISIT Vaginal Delivery Only POSTOP FOLLOW-UP VISIT POSTOP FOLLOW-UP VISIT OFFICE/OUTPATIENT VISIT, EST OFFICE/OUTPATIENT VISIT, EST OFFICE/OUTPATIENT VISIT, EST OFFICE/OUTPATIENT VISIT, EST Antepartum Visit OFFICE/OUTPATIENT VISIT, EST OFFICE/OUTPATIENT VISIT, EST BH Education - Prevention Substance Abus e CYTOPATH, C/V, THIN LAYER OFFICE/OUTPATIENT VISIT, EST DRUG TEST PRSMV DIR OPT OBS Pt inelig neg scrn depres OFFICE/OUTPATIENT VISIT, NEW URINE TEST Advance Directives Directive Yes / No Effective Date File Name No Information Encounters Encounter Description Practice Location Reason(s) For Visit Diagnoses Date Provider Providers Copied on Encounter [facility], [address], [place], [place], [id number], [place] tel:[phone] Clinical Services Department No Information 3 AAA Provider Test. [address] [place] [address], [address], [place]. tel:[phone] [facility], [address], [place], [place], [id number], [place] tel:[phone] [facility] No Information Sep-2 2 Kerrie Perez. [address] [place], [address], [place]. tel:[phone] [facility], [address], [place], [place], [id number], [place] tel:[phone] [facility] No Information May-2 2 No Information [facility], [address], [place], [place], [id number], [place] tel:[phone] [facility] No Information May-2 2 No Information [facility], [address], [place], [place], [id number], [place] tel:[phone] [facility] No Information Sep-2 [address] [facility] [place], [address], [place]. tel:[phone] OFFICE/OUTPA TIENT VISIT, EST [facility], [address], [place], [place], [id number], [place] tel:[phone] [facility] routine (chief complaint) Obesity affecting in third trimesterObesit y, unspecifiedSupe rvision of other high risk pregnancies, third trimesterMatern al care for benign tumor of corpus uteri, third triDrug use complicating , third trimesterCannab is use, unsp with unsp cannabis-induce d disorderOth mental disorders complicating , third trimesterMajor depressive disorder, single episode, unspecifiedHerp es gestationis, third trimesterMatern al care for oth abnormality and damage, unspCongenital hydronephrosis2 8 weeks gestation of May- 2 Juliet Turner. [address] [place], [address], [place]. tel:[phone] OFFICE/OUTPA TIENT VISIT, [facility], [address] [address], [place], [place], [id number], [place] tel:[phone] [facility] BTL consult (chief complaint) routine (chief complaint) Drug use complicating , third trimesterCannab is use, unsp with unsp cannabis-induce d [id number] weeks gestation of Sep- 2 Ashley Lora. [address] [place], [address], [place]. tel:[phone] OFFICE/OUTPA TIENT VISIT, [facility], [address] [address], [place], [place], [id number], [place] tel:[phone] [facility] routine (chief complaint) Cannabis use, unspecified, uncomplicatedHi story of substance useObesity affecting in third trimesterObesit y, unspecifiedOth mental disorders complicating , third trimesterSuperv ision of other high risk pregnancies, third trimesterDrug use complicating , third trimesterMajor depressive disorder, single episode, unspecifiedAnxi ety disorder, unspecifiedHerp es gestationis, third [id number] weeks gestation of pregnancyMatern al care for benign tumor of corpus uteri, third tri 2 Juliet Turner. [address] [place], [address], [place]. tel:[phone] OFFICE/OUTPA TIENT VISIT, [facility], [address], [place], [place], [id number], [place] tel:[phone] [facility] routine (chief complaint) History of substance useSupervision of other high risk pregnancies, third trimesterObesit y affecting in third trimesterHerpes gestationis, third trimesterObesit y, unspecifiedDrug use complicating , third trimesterCannab is use, unsp with unsp cannabis-induce d disorderOth mental disorders complicating , third trimesterMajor depressive disorder, single episode, [id number] weeks gestation of 2 Juliet Turner. [address] [place], [address], [place]. tel:[phone] OFFICE/OUTPA TIENT VISIT, [facility], [address], [place], [place], [id number], [place] tel:[phone] [facility] routine (chief complaint) Encounter for supervision of other normal in second trimester 2 Yusra Tobin. [address], [place], [address], [place]. tel:[phone] OFFICE/OUTPA TIENT VISIT, [facility], [address], [place], [place], [id number], [place] tel:[phone] [facility] cough (chief complaint) Cough 2 No Information [facility], [address], [place], [place], [id number], [place] tel:[phone] [facility] Personal history of mental disorderHistory of substance use 2 No Information OFFICE/OUTPA TIENT VISIT, [facility], [address], [place], [place], [id number], [place] tel:[phone] [facility] Ob Initial (chief complaint) Drug use affecting in second trimesterDrug use affecting in second trimesterEncoun ter for other specified special examinationsCan nabis use, unsp with unsp cannabis-induce d [id number] weeks gestation of 2 No Information OFFICE/OUTPA TIENT VISIT, [facility], [address], [id number], tel:[phone] [facility] UPT (chief complaint) Encounter for screening for depressionPregn heather, unspecified gestational ageDrug use affecting in first trimesterCannab is use, unspecified, uncomplicatedWe eks of gestation of not specified 2 Tre Lam [address] [place], [address], [place]. tel:[phone] Family History Family Member Type Diagnosis Age At Onset Mother Problem (finding) hypertension Mother Problem (finding) Thyroid disease Payers Payer name Insurance type Covered democrat ID Navya garcia(s) Medicaid Fee For Service [id number] Social History Type Description Quantity Date Captured Comments Sex Female Smoking Status No Information Chief Complaint And Reason For Visit No Information Reason For Referral Reason For Referral No Information Plan Of Treatment Date Type Action Status Goal Influenza vaccine. Due on due Goal Dental exam. Due on due Goal Depression screening. Due on due Goal HPV (1st). Due on due Goal PAP. Due on due Goal HIV Routine Screening. Due o n due Goal Td vaccine. Due on due Goal Tdap. Due on due Goal Td vaccine. Due on due Goal PAP. Due on due Goal Tdap. Due on due Goal Influenza vaccine. Due on due Goal HIV Routine Screening. Due o n due Goal Depression screening. Due on due Goal Dental exam. Due on 022 due Goal HPV (1st). Due on due Goal HPV (1st). Due on due Goal Tdap. Due on due Goal Influenza vaccine. Due on due Goal Depression screening. Due on due Goal HIV Routine Screening. Due o n due Goal PAP. Due on due Goal Td vaccine. Due on due Goal Dental exam. Due on due Goal Dental exam. Due on due Goal Td vaccine. Due on due Goal Depression screening. Due on due Goal PAP. Due on due Goal HPV (1st). Due on due Goal Influenza vaccine. Due on due Goal Tdap. Due on due Goal HIV Routine Screening. Due o n due Goal Tdap. Due on due Goal Influenza vaccine. Due on due Goal Depression screening. Due on due Goal Dental exam. Due on due Goal Td vaccine. Due on due Goal HPV (1st). Due on due Goal HIV Routine Screening. Due o n due Goal PAP. Due on due Goal Depression screening. Due on due Goal Influenza vaccine. Due on due Goal Tdap. Due on due Goal Dental exam. Due on due Goal Td vaccine. Due on due Goal HIV Routine Screening. Due o n due Goal HPV (1st). Due on due Goal PAP. Due on due Goal Dental exam. Due on due Goal Influenza vaccine. Due on due Goal HPV (). Due on due Goal HIV Routine Screening. Due o n due Goal Td vaccine. Due on due Goal Depression screening. Due on due Goal Tdap. Due on due Goal PAP. Due on due Goal Td vaccine. Due on due Goal Influenza vaccine. Due on due Goal HPV (). Due on due Goal Dental exam. Due on due Goal Depression screening. Due on due Goal HIV Routine Screening. Due o n due Goal PAP. Due on due Goal Tdap. Due on due Goal PAP. Due on due Goal Tdap. Due on due Goal Td vaccine. Due on due Goal Dental exam. Due on 022 due Goal HIV Routine Screening. Due o n due Goal Depression screening. Due on due Goal Influenza vaccine. Due on Ap due Goal HPV (1st). Due on 2 due Referral Ordered: Referrals: Maternal Fetus Medicine [id number] Ordered: OB Ultrasound (equal or greater than 14 wks GA); Transabdominal; Single Fetus [id number] Ordered: OB Ultrasound; Transvaginal [id number] Order: Radiology OrderOB Ultrasound; Transvaginal ([id number]), Ordered on: [id number] History Of Present Illness Encounter Date Complaint History Of Prese nt Illness routine routine BTL consult routine routine routine cough Onset: 2 months ago. The patient describes the cough as dry and productive. Associated symptoms include cough, nasal congestion and post-nasal drainage. Pertinent negatives include dyspnea, dyspnea on exertion, fever, rhinitis, sinus pressure and sore throat. The patient does not have a history of allergies or asthma. Additional information: right ear pain . states she has been on vitamins only. reports STOVALL and chest tightness due to the cough. Ob Initial UPT 26yo with u nknown LMP presents for confirmation. Pt states she already had a test and ultrasound when she was 7 wks. She denies having received a report from the center. But she states they told her her EDC would be 06/23/22 which would make her 15 wks today. Pt reports h/o x 2 without complications. She smokes marijuana on a daily basis and is already taking a PNV. She states she smoked marijuana in her previous pregnancies. She denies any medication use or prior surgeries. Functional Status Date Functional Assessmen t No Information Instructions Date Instruction Additional Infor abena -Take RX as directed tylenol as needed for discomfort or fever Adequate water intake. Recommend at least 64 oz dailyGood hand hygiene practicesHumidifier can helpVick Vapor rub to chest at nightHoney with warm tea or warm fluids can help with coughSchedule an appt with your pcp in one week if symptoms worsen or new symptoms appearSeek emergent care for shortness of difficulty in breathing, chest pain, worsening symptoms. Related to Cough childbirth classes / hospital fa cilities seat belt use domestic violence smoking counseling use of any medicatio ns (including supplements, vitamins, herbs, OTC drugs) illicit / recreational drugs alcohol tobacco (ask, advise, assess, as sist and arrange) travel environmental / work hazards influenza vaccine indications for ultrasound exercise sexual activity toxoplasmosis precautions (cats / raw meat) nutrition and weight gain vero florentino special diet anticipated course of c are risk factors identified by allen smith history HIV and other routine t ests Assessments Type Assessment Date No Information Patient Care Teams Name Effective Dates (start - stop) Status Members No Information
--- OUTSIDE RECORDS SUMMARY | 2025-09-05 10:30 | XMS_ITS | Encounter Summary ---
Author Organization [facility] Address [address] [place] [address] Care Team Providers Care Strand Forming Machine Operator Name Role Phone Florecita Ureña MD Primary Care Provider [phone] Encounter Details DateTypeDepartmentCare Team (Latest Contact Info)Yyrabhesevn59/10/2025 10:30 AM ESTAncillary Procedure [facility] AR[facility] [address] [place] [address] H/O pre-eclampsia in prior , currently ([facility]) Social History Tobacco UseTypesPacks/DayYears UsedDateSmoking Tobacco: Never AssessedPHQ-2 AnswerDate RecordedPatient Health Questionnaire-2 Haqcw160 Estimated Date of YaallbgaJpxoifdoCsz85/01/2026Based on Ultrasound, FHR- 117Sex and Gender InformationValueDate RecordedSex Assigned at BirthNot on fileLegal IqyYtsiuk05/15/2023 11:47 PM EDTGender IdentityNot on fileSexual OrientationNot on filedocumented as of this encounter Plan of Treatment DateTypeDepartmentCare Team (Latest Contact Info)Rffhpgcjwhp29/08/2026 10:20 AM ESTConsult [facility] [address] [facility] [address] Ravindra Chandler DO [address] [place], [place] [id number] NameTypePriorityAssociated DiagnosesDate/TimeUS OB follow up transabdominal approachImagingRoutine H/O pre-eclampsia in prior , currently ([facility]) 09/05/2025 10:53 AM ESTdocumented as of this encounter Visit Diagnoses Diagnosis H/O pre-eclampsia in prior , currently ([facility]) documented in this encounter Care Teams Team MemberRelationshipSpecialtyStart DateEnd Date Florecita Ureña MD [address] [place] [address], [facility] [address], [place] [address] PCP - GeneralFamily Medicine04/10/25documented as of this encounter
--- OUTSIDE RECORDS SUMMARY | 2025-09-05 10:50 | XMS_ITS | Encounter Summary ---
Author Organization [facility] Address [address] [place] [address] Care Team Providers Care Cryogenics Engineer Name Role Phone Florecita Ureña MD Primary Care Provider [phone] Reason for Visit * ReasonCommentsRoutine Visit Encounter Details DateTypeDepartmentCare Team (Latest Contact Info)Fkliwralafc75/10/2025 10:50 AM ESTRoutine [facility] [facility] [address] [facility] [place] [address] Ravindra Chandler DO [address] [facility] [address] [place], [place] [phone] Upper respiratory tract infection, unspecified type (Primary Dx); Third trimester ([facility]); 36 weeks gestation of ([facility]) Social History Tobacco UseTypesPacks/DayYears UsedDateSmoking Tobacco: Never AssessedPHQ-2 AnswerDate RecordedPatient Health Questionnaire-2 Sashp146 Estimated Date of ByecemftPchgaricCzr87/01/2026ased on Ultrasound, FHR- 117Sex and Gender InformationValueDate RecordedSex Assigned at BirthNot on fileLegal ZjsQybtuw71/15/2023 11:47 PM EDTGender IdentityNot on fileSexual OrientationNot on filedocumented as of this encounter Last Filed Vital Signs Vital SignReadingTime TakenCommentsBlood Cymxzjas607/[address]/06/2024 11:08 AM EST Pulse--Temperature--Respiratory Rate--Oxygen Saturation--Inhaled Oxygen Concentration--Ixuujd154 kg (286 lb 4 oz)09/05/2025 11:08 AM ESTHeight--Body Mass Index49.13004/10/2025 10:22 AM EDTdocumented in this encounter Progress Notes * JOSE Becker - 09/05/2025 10:50 AM EST Reason for Appointment: Patient ID: Emilie Soto is a 30 y.o. female who presents for Routine Visit Patient presents today for Return OB appointment. MEDICATIONS Current Outpatient Medications Medication Instructions azithromycin (Zithromax Z-Jono) 250 MG tablet As directed buPROPion SR (WELLBUTRIN SR) 150 mg, Oral, Nightly doxylamine (UNISOM) 25 mg, Oral, Nightly PRN Doxylamine Succinate, Sleep, (UNISOM PO) 1 tablet, Nightly Doxylamine Succinate, Sleep, (UNISOM PO) Take by mouth fluticasone (Flonase) 50 MCG/ACT nasal spray 1 spray, Each Nostril, Daily, Shake gently. Before first use, prime pump. After use, clean tip and replace cap. ondansetron (ZOFRAN) 4 mg, Every 8 hours PRN Prenat w/o A-XkIlf-Mvaq-FA-DHA (TriStart DHA) 31-0.6-0.4-200 MG capsule 1 capsule, Daily RT witch keya-glycerin (Tucks) pad Topical, As needed ALLERGIES No Known Allergies PROBLEMS Active Ambulatory Problems Diagnosis Date Noted No Active Ambulatory Problems Resolved Ambulatory Problems Diagnosis Date Noted No Resolved Ambulatory Problems Past Medical History: Diagnosis Date Anxiety Bipolar disorder (HCC) Depression Pre-eclampsia ([facility]) HISTORY PAST MEDICAL HISTORY SOCIAL HISTORY Past Medical History: Diagnosis Date Anxiety Bipolar disorder (HCC) Depression Pre-eclampsia ([facility]) Social History Tobacco Use Smoking status: Not on file Smokeless tobacco: Not on file Substance Use Topics Alcohol use: Not on file Drug use: Not on file FAMILY HISTORY No family history on file. SURGICAL HISTORY No past surgical history on file. REVIEW OF SYSTEMS Review of Systems: Review of Systems Constitutional: Negative. HENT: Negative. Eyes: Negative. Respiratory: Negative. Cardiovascular: Negative. Gastrointestinal: Negative. Genitourinary: Negative. Musculoskeletal: Negative. Skin: Negative. Neurological: Negative. All other systems reviewed and are negative. Hematological: Negative. Endocrine: Negative. Allergic/Immunologic: Negative. OBJECTIVE Objective: Physical Exam Constitutional: Appearance: Normal appearance. She is normal weight. HENT: Head: Normocephalic. Cardiovascular: Rate and Rhythm: Normal rate. Pulses: Normal pulses. Pulmonary: Effort: Pulmonary effort is normal. Breath sounds: Normal breath sounds. Abdominal: Palpations: Abdomen is soft. Musculoskeletal: General: Normal range of motion. Neurological: General: No focal deficit present. Mental Status: She is alert and oriented to person, place, and time. Psychiatric: Mood and Affect: Mood normal. Behavior: Behavior normal. Thought Content: Thought content normal. Judgment: Judgment normal. Vitals and nursing note reviewed. Vitals: Estimated body mass index is 49.13 kg/m?? as calculated from the following: Height as of 04/10/25: 5' 4 . Weight as of this encounter: 286 lb 4 oz. BP: 134/80 No LMP recorded. Patient is . Assessment/Plan ICD-10-CM 1. Third trimester ([facility]) Z34.93 CULTURE, GROUP B STREP WITH SUSCEPTIBLITY CULTURE, GROUP B STREP WITH SUSCEPTIBLITY POCT urinalysis dipstick manually resulted 2. 36 weeks gestation of ([facility]) Z3A.36 Assessment/Plan Return OB: Patient presents today for a routine obstetrics appointment. Patient is currently 36w6d . Patient states she is doing well but has complaints of being tired due to current . Patient has verbalizes frequent movement. labor precautions was discussed/given and patient was instructed to perform kick counts three times a day. Patient is doing well but has complaints of being tired and having maternal discomfort due to . Patient verbalized frequent movement and was instructed to perform kick counts three times per day. labor precautions were given, LARC consent was signed/declined, and GBS was obtained. Cervical check was performed and patient is 1cm dilated. Orders Placed This Encounter Procedures CULTURE, GROUP B STREP WITH SUSCEPTIBLITY POCT urinalysis dipstick manually resulted Follow Up: Patient is to return to office in 1 week for routine OB appointment Orders Placed This Encounter Procedures CULTURE, GROUP B STREP WITH SUSCEPTIBLITY POCT urinalysis dipstick manually resulted Follow Up: Patient is to return to office in 1 week for routine OB appointment. Documented by JOSE Becker on behalf of: Ravindra Chandler DO documented in this encounter Plan of Treatment DateTypeDepartmentCare Team (Latest Contact Info)Carpdstcefk06/08/2026 10:20 AM ESTConsult [facility] [address] [facility] [place] [phone] Ravindra Chandler DO [address] [facility] [place] [address] NameTypePriorityAssociated DiagnosesOrder ScheduleCULTURE, GROUP B STREP WITH SUSCEPTIBLITYLabRoutine Third trimester ([facility]) Expected: 09/05/2025, Expires: 09/05/2026documented as of this encounter Procedures Procedure NamePriorityDate/TimeAssociated DiagnosisCommentsPOCT URINALYSIS IQSZPVIXLyjjpma41/10/2025 11:16 AM EST Third trimester ([facility]) documented in this encounter Results * POCT urinalysis dipstick manually resulted (09/05/2025 11:16 AM EST)Component ValueRef RangeTest MethodAnalysis TimePerformed AtPathologist SignatureColor, UAYellowClarity, UAClearGlucose, UANegativeNegative - 2000(110) ++++ mg/dL Bilirubin, UANegativeNegative - 4(70) +++ mg/dLKetones, UANegativeNegative - 160(16) ++++ mg/dLSpec Grav, UA1.0151 - 1.03Blood, UANegativeNegative - 50 Jose/mcLpH, UA6.05 - 9Protein, UANegativeNegative - 2000(20) ++++ mg/dL Urobilinogen, UA0.20.2 - 12 mg/dLLeukocytes, UANegativeNegative - 500+++ Jai/mcLNitrite, UANegativeNegative - PositiveSpecimen (Source)Anatomical Location / LateralityCollection Method / VolumeCollection TimeReceived Time Urine09/05/2025 11:16 AM EST Narrative Authorizing ProviderResult TypeResult StatusCorey Geraldine DOPOINT OF CARE TEST ENTER/EDIT ORDERABLESFinal Result documented in this encounter Visit Diagnoses Diagnosis Upper respiratory tract infection, unspecified type- Primary Third trimester ([facility]) state, incidental 36 weeks gestation of ([facility]) documented in this encounter Care Teams Team MemberRelationshipSpecialtyStart DateEnd Date Florecita Ureña MD [address] [facility] [address], [place] [address] PCP - GeneralFamily Medicine04/10/25documented as of this encounter
[2025-09-09] VITALS (13 sets, daily range): BP systolic 108–131; BP diastolic 61–81; PULSE 78–108; TEMP 36.1–36.6
--- OUTSIDE RECORDS SUMMARY | 2025-09-09 17:08 | XMS_ITS | Clinical Summary ---
Author Organization kooldiner tem Address [id number] [address] [place] [address] Care Team Providers Care Embedded Systems Engineer Name Role Phone Florecita Ureña APRN-MANAGER CATEGORY Primary Care Provider Allergies No known active allergies Medications MedicationSigDispense QuantityRefillsLast FilledStart DateEnd DateStatus 62-sdau-jmfsqf 9-dha 31 mg iron- 1 mg-200 mg [...] 5Active Active Problems ProblemNoted DateDiagnosed DateMaternal varicella, non-hdgrno6702/11/2025Rubella equivocal status, wlzhjibtfi07/18/2025Vapes nicotine containing substance 02/06/2025Marijuana use during ziclayhdt05/13/2025Family history of autism 02/06/2025 Overview (02/06/2025): 3 of 4 children are autistic, fourth child is getting tested. Nausea/vomiting in ddynodwlg52/13/2025Obesity affecting teuztxswj95/13/2024High / Overview (02/06/2025): Just found out ADHD (attention deficit hyperactivity disorder) Overview (10/18/2024): Child AnxietyBipolar disorderDepressionHistory of gestational hypertension Estimated Date of KngnaoyeAoepvksfMrl14/01/2026ased on Ultrasound Encounters DateTypeDepartmentCare RycgNdxqfoggunb46/02/2025Telephone [facility] [address] [place] [address] [address] [place] [address] Elsy Samuel, STACEY Appointmentfrom Last 3 Months Family History Medical HistoryRelationNameCommentsHeart diseaseFatherSteve forneyHypertension MotherLaura englehartRelationNameStatusCommentsFatherSteve forneyAliveMother Geri englehartDeceased Social History Tobacco UseTypesPacks/DayYears UsedDateSmoking Tobacco: LfzfwrSqlqriykqf81.7 Started: 04/26/2024Vaping/E-cigarettesSmokeless Tobacco: Never Tobacco Cessation:Counseling Given: Not Answered Alcohol UseStandard Drinks/WeekCommentsNo0 (1 standard drink = 0.6 oz pure alcohol)Overall Financial Resource Strain (CARDIA)AnswerDate RecordedHow hard is it for you to pay for the very basics like food, housing, medical care, and heating?Patient cahqotmk61/04/2025PHQ-2AnswerDate RecordedTotal Score10 05/23/2025PRAPARE - TransportationAnswerDate RecordedIn the [...] part of a household?No02/28/2025hildcareAnswerDate RecordedDo problems getting child study team director make it difficult for you to work or study?No 02/28/2025EmploymentAnswerDate SzuydcpgBfhsxeidniFbsqmlr23/11/2019Hunger ScreeningAnswerDate RecordedWithin the past 12 months we worried whether our food would run out before we got money to buy more.Never True05/23/2025Within the past 12 months the food we bought just didn't last and we didn't have money to get more.Never True05/23/2025Purpose - LifeAnswerDate RecordedPurpose and direction in egqjMjcbgis43/10/2021Estimated Date of DeliveryCommentsYes 6Based on UltrasoundSex and Gender InformationValueDate RecordedSex Assigned at BirthNot on fileLegal LylFnytcw10/04/2015 7:08 PM EDTGender Identity Not on fileSexual OrientationNot on file Last Filed Vital Signs Vital SignReadingTime TakenCommentsBlood Kbciiqlo878/78005/23/2025 8:08 AM EDT Xobwx207605/23/2025 8:08 AM NUBLdtugqxbdby16.9 ??C (98.4 ??F)05/23/2025 8:08 AM EDTRespiratory Hniq506905/06/2021 8:33 PM EDTOxygen Mgsbzypmlk44%05/23/2025 8:08 AM EDTInhaled Oxygen Concentration--Kaform147.7 kg (268 lb 6.4 oz)05/23/2025 8:08 AM LWRNetenc672.4 cm (5' 3.54 )05/23/2025 8:08 AM EDTBody Mass Index46.74 05/23/2025 8:08 AM EDT Plan of Treatment DateTypeDepartmentCare Team (Latest Contact Info)Mvtumlojqlh28/22/2025 8:20 AM ESTOffice Visit [facility] [address] [place] [address] Florecita Ureña APRN-DAVID [address] [place] [address], [facility] [place] [address] Health MaintenanceDue DateLast DoneCommentsDTaP,Tdap and Td Vaccines (7 - Td or Tdap), 05/18/2003, 06/16/1999, Additional history exists Influenza Kqyjqxv6805/28/2025dult BMI Follow Up Plandult BMI Teonjkhls51Depression Ojqrtkqss69/Tobacco Pjogtmavy09Pap Smear/01/2025, 08/16/2019, 08/09/2018RSV ( or age 60+ yrs) (No Doses Required)Completed Medical Devices Not on file Procedures Procedure NamePriorityDate/TimeAssociated DiagnosisCommentsTHIN PREP PAP TEST Lrsyynd2403/01/2025 12:07 PM EDT Cervical smear, as part of routine gynecological examination from Last 3 Months or Most Recently Relevant to Health Maintenance Results * Thin Prep Pap Test (03/01/2025 12:07 PM EDT)ComponentValueRef RangeTest Method Analysis TimePerformed AtPathologist SignatureCase ReportGynecologic Cytology Report ? Case: [id number] ? Authorizing Provider: ??CATRACHO Erazo ?? Collected: ? 03/01/2025 1207 ? Ordering Location: ? [facility] ? Received: ?03/01/2025 1207 ? Obstetrics/Gynecology ? First Screen: ?Samantha Rossp, CT(ASCP) ? Rescreen: ?Ronnie Kay, ? CT(ASCP) ? Specimen: ?Thin Prep Pap, Cervix ? 03/05/2025 3:12 PM [facility] LABORATORYSpecimen Adequacy Satisfactory for evaluation, endocervical/transformation zone component present 03/05/2025 3:12 PM [facility] LABORATORYInterpretationNEGATIVE FOR INTRAEPITHELIAL LESION OR MALIGNANCYNEGATIVE FOR INTRAEPITHELIAL LESION OR MALIGNANCY, UNSATISFACTORY, EPITHELIAL CELL ABNORMALITY, GLANDULAR EPITHELIAL CELL ABNORMALITY. , SQUAMOUS EPITHELIAL CELL ABNORMALITY, NO DIAGNOSIS RENDERED. 03/05/2025 3:12 PM [facility] at 1512 EDTAdditional InformationThe Pap test is a screening test with an inherent, but low, probability of error. The Pap test is primarily effective for the diagnosis and prevention of squamous cell carcinoma. Regular screening iscritical for prevention. ThinPrep liquid-based slides, which meet the Bioinformatics Computer Scientist criteria for automated screening, have been screened by the ThinPrep Imaging System (as of 06/13/07) along with an additional manual rescreening by a maintenance worker and, if indicated, by a pathologist.03/05/2025 3:12 PM [facility] LABORATORYClinical Nlkoepwngwcixrm25/09/2025 3:12 PM [facility] LABORATORYEmbedded Olbsxq4903/05/2025 3:12 PM [facility] LABORATORYSpecimen (Source)Anatomical Location / LateralityCollection Method / VolumeCollection TimeReceived TimeThinPrep cytology technique (qualifier value) Cervix uteri structure / Xehqslt8803/01/2025 12:07 PM EDT03/01/2025 12:07 PM EDT Narrative Authorizing ProviderResult TypeResult StatusMesha Johnson LIME KILN OPERATOR-MANAGER CATEGORY PATHOLOGY/CYTOLOGY ORDERABLESFinal ResultPerforming OrganizationAddress City/State/ZIP CodePhone Number [facility] [address] [place] [address], from Last 3 Months or Most Recently Relevant to Health Maintenance Insurance Care Teams Team MemberRelationshipSpecialtyStart DateEnd Date Florecita Ureña APRN-DAVID [address] [place] [address], [place] [address] PCP - GeneralNurse Practitioner06/26/24
--- OUTSIDE RECORDS SUMMARY | 2025-09-09 17:08 | XMS_ITS | Clinical Summary ---
Author Organization [facility] Address [address] [place] [address] Care Team Providers Care Regional Marketing Director Name Role Phone Florecita Ureña MD Primary Care Provider [phone] Allergies No known active allergies Medications MedicationSigDispense QuantityRefillsLast FilledStart DateEnd DateStatus ondansetron (Zofran) 4 MG tablet Take 4 mg by mouth every 8 (eight) hours if texxaj575Active Prenat w/o L-KaUmb-Htdp-FA-DHA (TriStart DHA) 31-0.6-0.4-200 MG capsule Take 1 capsule by mouth in the morning.5Active Doxylamine Succinate, Sleep, (UNISOM PO) Take 1 tablet by mouth at bedtimeActive buPROPion SR (Wellbutrin SR) 150 MG 12 hr tablet Indications:Vapes nicotine containing substanceTake 1 tablet (150 mg) by mouth at bedtime 30 tablet 11004/10/374243/6Active fluticasone (Flonase) 50 MCG/ACT nasal spray Indications:Sinus congestionAdminister 1 spray into each nostril Daily Shake gently. Before first use, prime pump. After use, clean tip and replace cap. 16 g 04/25/628420/6Active doxylamine (Unisom) 25 MG tablet Indications:Other insomniaTake [...] 7 days. 21 tablet 5Active Encounters DateTypeDepartmentCare SdtzUysjmkpzuic69/10/2025 10:50 [place] [address] Ravindra Chandler DO Upper respiratory tract infection, unspecified type (Primary Dx); Third trimester ([facility]); 36 weeks gestation of ([facility])09/05/2025 10:30 AM ESTAncillary Procedure [facility] ARDON [address] [place], [place] [address] [place] [address] H/O pre-eclampsia in prior , currently ([facility])08/31/2025 [place] [address] Themla Iglesias MA Error (VOID this visit)08/14/2025 9:30 [place] [address] Ravindra Chandler DO 33 weeks gestation of ([facility]); Third trimester ([facility]); Upper respiratory tract infection, unspecified type; Hemorrhoids, unspecified hemorrhoid type; H/O pre-eclampsia in prior , currently ([facility])08/14/2025 [place] [address] Ravindra Chandler DO 08/09/2025Patient Outreach [facility] [address] [place] [address] April Mahmood LPN 08/06/2025 9:30 AM ESTAncillary Procedure [facility] [place] Munoz [facility] [place] [address] Excessive growth affecting management of in third trimester, single or unspecified fetus ([facility])07/30/2025 9:20 AM ESTRoutine [facility] Amanda PENNINGTONGYFerny [address] [facility] [place] [address] April Rowley PA BV (bacterial vaginosis) (Primary Dx); Third trimester ([facility]); 31 weeks gestation of ([facility])07/30/2025amboo flowsheet [facility] Amanda OBGYFerny uMnoz [facility] [place] [address] April Rowley PA 07/24/2025Telephone [facility] OBNEW Munoz [facility] [place] [address] Saundra Ríos MA 07/16/2025 11:00 AM EDTRoutine [facility] [place] Munoz [facility] [place] [address] Ravindra Chandler DO 29 weeks gestation of ([facility]); Third trimester ([facility])07/16/2025 10:30 AM EDTAncillary Procedure [facility] Amanda OBGYN Alexander [facility] [place] [address] 27 weeks gestation of ([facility])07/16/20252381Anogbe41/15/2025Patient Outreach [facility] [address] [place] [address] April Mahmood LPN 07/02/2025 10:50 AM EDTRoutine [facility] [place] Munoz [facility] [place] [address] Elsy Rooney, RAHEL related fatigue in second trimester ([facility]) (Primary Dx); 27 weeks gestation of ([facility]); Second trimester ([facility]); Anemia, unspecified type07/02/2025linisync Result Encounter NOM[facility] External Department Unsolicited Ravindra Chandler, DO 07/02/20255641Qpnjug31/25/2025Telephone [facility] [place] ARDON [address] [place] [address] Ravindra Chandler, 06/13/2025Patient Outreach [facility] [employer] [address] [place] [address] April Mahmood LPN from Last 3 Months Social History Tobacco UseTypesPacks/DayYears UsedDateSmoking Tobacco: Never AssessedPHQ-2 AnswerDate RecordedPatient Health Questionnaire-2 Tyogg716 Estimated Date of LlhiybczNcohfazyWtj10/01/2026ased on Ultrasound, FHR- 117Sex and Gender InformationValueDate RecordedSex Assigned at BirthNot on fileLegal EiiIqaofk35/15/2023 11:47 PM EDTGender IdentityNot on fileSexual OrientationNot on file Last Filed Vital Signs Vital SignReadingTime TakenCommentsBlood Qhefcaum871/8012 11:08 AM EST Pulse--Temperature--Respiratory Rate--Oxygen Saturation--Inhaled Oxygen Concentration--Iesgum276 kg (286 lb 4 oz)09/05/2025 11:08 AM JMSWdtayo426.6 cm (5' 4 )04/10/2025 10:22 AM EDTBody Mass Index49.1307 10:22 AM EDT Plan of Treatment DateTypeDepartmentCare Team (Latest Contact Info)Wjsispqxnsu50/08/2026 10:20 AM ESTConsult NOMDorcas ARDON [address] [facility] [place] [address] Ravindra Chandler, DO [address] [place] [address] Procedures Procedure NamePriorityDate/TimeAssociated DiagnosisCommentsPOCT URINALYSIS UZEVRVXTQlipmli04/10/2025 11:16 AM EST Third trimester ([facility]) POCT URINALYSIS NVVMCWIBHxwscqo44/18/2025 9:42 AM EST 33 weeks gestation of ([facility]) Third trimester ([facility]) US OB FOLLOW UP TRANSABDOMINAL CAYUPICYZescona06/10/2025 9:49 AM EST Excessive growth affecting management of in third trimester, single or unspecified fetus ([facility]) POCT URINALYSIS BLYLBRIFBzgrenb34/03/2025 9:45 AM EST 31 weeks gestation of ([facility]) POCT URINALYSIS RNBACLXINllrdrz08/20/2025 11:11 AM EDT 29 weeks gestation of ([facility]) US OB FOLLOW UP TRANSABDOMINAL AJHXFHFZYbzfolw08/20/2025 11:01 AM EDT 27 weeks gestation of ([facility]) POCT URINALYSIS VUUPGAZRVcruhbq50/06/2025 10:21 AM EDT 27 weeks gestation of ([facility]) GLUCOSE 1 CDAWVzcauej74/06/2025 9:44 AM EDT ALL CBC WITH AUTO NVMLZgjdlkc67/06/2025 9:44 AM EDT from Last 3 Months Results * POCT urinalysis dipstick manually resulted (09/05/2025 11:16 AM EST) Only the most recent of5 resultswithin the time period is included. ComponentValueRef [...] Location / LateralityCollection Method / VolumeCollection TimeReceived GxmkOqety64/10/2025 11:16 AM EST Narrative Authorizing ProviderResult TypeResult [...] delivery as September 15, 2025. Procedure Note aNresh Siu MD - 08/08/2025 FINDINGS: A single, [...] Naresh Siu MD Authorizing ProviderResult TypeResult StatusElsy Toribio NPIMG OB US PROCEDURESFinal Result * GLUCOSE 1 HOUR (07/02/2025 9:44 AM EDT)ComponentValueRef RangeTest Method Analysis TimePerformed AtPathologist SignatureGLUCOSE 1 LOGH490<130 mg/dLTBH Specimen (Source)Anatomical Location / LateralityCollection Method / Volume Collection TimeReceived Time07/02/2025 9:44 AM EDT1 9:44 AM EDT Narrative [facility] - 07/02/2025 10:24 AM EDT Authorizing ProviderResult TypeResult StatusCorey Geraldine DOLAB BLOOD ORDERABLES Final ResultPerforming OrganizationAddressCity/State/ZIP CodePhone Number [facility] * (ABNORMAL) ALL CBC WITH AUTO DIFF (07/02/2025 9:44 AM EDT)ComponentValueRef RangeTest MethodAnalysis TimePerformed AtPathologist SignatureTBH WBC8.24.0 - 11.0 10 3/uLTBHTBH RBC3.92(L)4.20 - 5.40 10 6/uLTBHTBH HGB10.5(L)12.0 - 16.0 g/dLTBHTBH HCT32.8(L)36.0 - 48.0 %TBHTBH MCV83.781.0 - 99.0 fLTBHTBH MCH26.8 26.7 - 34.0 pgTBHTBH MCHC32.029.9 - 35.2 g/dLTBHTBH RDW14.511.0 - 15.0 %TBHTBH AGV037671 - 450 10 3/uLTBHTBH MPV9.59.5 - 13.5 [...] Result Performing OrganizationAddressCity/State/ZIP CodePhone Number [facility] from Last 3 Months Insurance Care Teams Team MemberRelationshipSpecialtyStart DateEnd Florecita Ureña MD [address], [place] [address] [facility]CP - [facility]04/10/25
--- OUTSIDE RECORDS SUMMARY | 2025-09-09 17:08 | XMS_ITS | Encounter Summary ---
Author Organization [facility] Address [address] [place] [address] Care Team Providers Care Mixing Tumbler Operator Name Role Phone Florecita Ureña MD Primary Care Provider [phone] Reason for Visit * ReasonOnset DateCommentsError (VOID this visit)08/31/2025 Encounter Details DateTypeDepartmentCare Team (Latest Contact Info)Cxgoxeyuwbn26/05/2025Telephone LEXUS ARDON [address] [facility] [place] [address] Thelma Iglesias MA Error (VOID this visit) Social History Tobacco UseTypesPacks/DayYears UsedDateSmoking Tobacco: Never AssessedPHQ-2 AnswerDate RecordedPatient Health Questionnaire-2 Zyqfc687 Estimated Date of PfdthwetOeelecuaLts36/01/2026Based on Ultrasound, FHR- 117Sex and Gender InformationValueDate RecordedSex Assigned at BirthNot on fileLegal TmsBznpxr49/15/2023 11:47 PM EDTGender IdentityNot on fileSexual OrientationNot on filedocumented as of this encounter Plan of Treatment DateTypeDepartmentCare Team (Latest Contact Info)Fxraztdqmod13/08/2026 10:20 AM ESTConsult LEXUS ARDON [address] [facility] [place] [address] Ravindra Chandler DO [address] [place], [place] [address] documented as of this encounter Visit Diagnoses Not on filedocumented in this encounter Care Teams Team MemberRelationshipSpecialtyStart DateEnd Date Florecita Ureña MD [address] [place] [id number] PCP - GeneralFamily Medicine04/10/25documented as of this encounter
[2025-09-09 17:31] LABS: Glucose Urine UA NEGATIVE (NEGATIVE)
[2025-09-09 17:44] LABS: Cannabinoid Screen Urine NEGATIVE (NEGATIVE); Methamphetamines Screen Urine NEGATIVE (NEGATIVE); Tricyclic Antidepressant Urine NEGATIVE (NEGATIVE)
[2025-09-09 17:47] LABS: Crystals Seen? None Seen #/HPF (None Seen)
[2025-09-09 17:48] LABS: Cast Seen? NONE SEEN #/LPF (NONE SEEN); Urine Culture Indicated YES-FRMC
[2025-09-09 19:40] LABS: Hematocrit 31.8 % (36.0-48.0); Hemoglobin 10.7 g/dL (12.0-16.0); Mean Corpuscular HGB Conc 33.6 g/dL (29.9-35.2); Mean Corpuscular Hemoglobin 27.4 pg (26.7-34.0); Mean Corpuscular Volume 81.3 fL (81.0-99.0); Platelet Count 335 10^3/uL (150-450); Red Blood Count 3.91 10^6/uL (4.20-5.40); White Blood Count 13.4 10^3/uL (4.0-11.0)
--- NOTE | 2025-09-09 20:13 | PC.NURSE ---
SVE 1cm/thick/high
[2025-09-09] MEDS: MISOPROSTOL 100 MCG TABLET 25 MCG VAGINAL ×2 (20:28→23:16)
[2025-09-09] MEDS: AMPICILLIN SODIUM 2,000 MG in 0.9 % SODIUM CHLORIDE 100 ML 200 MG IV (23:17)
[2025-09-10] VITALS (66 sets, daily range): BP systolic 84–136; BP diastolic 45–83; PULSE 66–133; TEMP 36.4–37
[2025-09-10] MEDS: MISOPROSTOL 100 MCG TABLET 25 MCG VAGINAL (01:52)
[2025-09-10] MEDS: AMPICILLIN SODIUM 1,000 MG in 0.9 % SODIUM CHLORIDE 50 ML 100 MG IV ×3 (03:03→10:55)
[2025-09-10] MEDS: OXYTOCIN/0.9 % SODIUM CHLORIDE 10 UNITS/500 ML PLAST..BAG 6 UNIT IV (06:07)
[2025-09-10] MEDS: 0.9 % SODIUM CHLORIDE 1,000 ML 125 ML IV ×2 (06:11→11:30)
[2025-09-10] MEDS: 0.9 % SODIUM CHLORIDE 1,000 ML 1000 ML IV (08:39)
[2025-09-10] MEDS: ROPIVACAINE HCL/PF 400 MG/200 ML PREMIX 6 MG EPIDURAL (08:43)
[2025-09-10] MEDS: OXYTOCIN/0.9 % SODIUM CHLORIDE 20 UNITS/1,000 ML PLAST..BAG 125 UNIT IV ×2 (12:57→20:40)
--- NOTE | 2025-09-10 14:01 | PM.OBPRCVD ---
Procedure Intrapartal events: None Induction method: per misoprostol protocol Delivery augmentation: rupture of membranes and pitocin Delivery monitor: external FHT and external uterine Route of delivery: Episiotomy Description: none L&D Laceration Description: periurethral - 1st degree Delivery repair: Vicryl Estimated blood loss (mL): 150 Anesthesia type: Epidural Disposition: floor Infant Delivery date: 09/10/25 Gender: female presentation: vertex Placental delivery description: Spontaneous cord description: 3 Vessels and Nuchal Cord (times 2) Stage 1 Duration Labor - Stage 1 Duration: 6 hours and 10 minutes Labor State Duration Labor - Stage 2 Duration: 13 minutes Labor - Stage 3 Duration: 4 minutes Total Length of Labor: 6 hours and 27 minutes Total Length of Latency: 5 hours and 5 minutes
[2025-09-10] MEDS: IBUPROFEN 600 MG TABLET PO (15:38)
[2025-09-10] MEDS: BENZOCAINE/MENTHOL 85 GRAM SPRAY BOTTLE 1 APPLIC TOPICAL (15:39)
[2025-09-10] MEDS: ACETAMINOPHEN 325 MG TABLET 650 MG PO (20:28)
[2025-09-10] MEDS: CARBOPROST TROMETHAMINE 250 MCG/ML 1 ML VIAL IM (20:36)
[2025-09-10] MEDS: KETOROLAC TROMETHAMINE 30 MG/ML VIAL IVP (20:43)
[2025-09-10 21:00] LABS: Hematocrit 25.6 % (36.0-48.0); Hemoglobin 8.1 g/dL (12.0-16.0); Immature Granulocytes Abs Auto 0.05 10^3/uL (0.00-0.03); Immature Granulocytes Pct Auto 0.5 % (0.0-0.5); Lymphocytes Absolute Auto 1.2 10^3/uL (1.2-3.8); Mean Corpuscular HGB Conc 31.6 g/dL (29.9-35.2); Mean Corpuscular Hemoglobin 26.3 pg (26.7-34.0); Mean Corpuscular Volume 83.1 fL (81.0-99.0); Platelet Count 234 10^3/uL (150-450); Red Blood Count 3.08 10^6/uL (4.20-5.40); White Blood Count 10.9 10^3/uL (4.0-11.0)
--- NOTE | 2025-09-10 22:17 | PC.NURSE ---
RN in with patient and she is having excessive bleeding with the passing of several large clots. 4 saturated pads were changed from report time. RN calls Dr Chandler at 2019 reported on increase in bleeding and 4 pads changed and he is coming in. 2019 104/45 pulse 82, 2025-95/54 pulse 95. 2032- Dr Chandler at bedside. Manual evacuation of clots performed by him. 2035-Hemabate given as ordered (see MAR) 2039- Pitocin 20 units in 1000 ml hung at 999 ml/hr for 300 ml then rate to decrease to 125 ml/hr. Toradol 30 mg IV given stat as ordered. Verified with Benji Rodriguez RN and given. 2046 Stat CBC is ordered. Dr Chandler remains at bedside. 2051. CBC drawn and taken to lab. 2054 Dr Chandler checks bleeding again and is WNL. He leaves [facility].
--- NOTE | 2025-09-10 22:26 | PC.NURSE ---
Addendum entered by Isabel Aguilar 09/11/25 01:13: Pads and chux weighed and measured 1050 grams Original Note: Pt has excessive bleeding with large clots. 4 saturated pads were changed from report time. 2018-Call made to Dr Chandler. Reported on excessive blood loss with large fist size clots, 4 pads changed since report. He is coming in. 2019- /45 pulse 82. EVERARDO Mccabe and greeting card writer remain in room with pt. Fundal massage is performed. Pericare and pads are changed. 2025- /54 pulse 95. 2032-Dr Chandler arrives at bedside. Manual evacuation of clots is performed by physician. 2035 Hemabate given as ordered, 2039- Pitocin 20 units in 1000 ml bag hung at 999ml/hr by Benji MCGEE. 2042 Toradol 30 mg is given IV stat for pain-verified with EVERARDO Leblanc. 2046 Stat CBC is ordered. 2051 Stat CBC collected by greeting card writer and taken to lab. Dr Chandler checks pt's bleeding again and is WNL before leaving. Uterus is firm and 1 below umbilicus. Continued surveillance on going.
[2025-09-11 03:28] VITALS: BP 107/59; PULSE 96; TEMP 36.6
[2025-09-11] MEDS: IBUPROFEN 600 MG TABLET PO ×2 (03:32→08:48)
[2025-09-11 06:12] LABS: Hemoglobin 7.0 g/dL (12.0-16.0); Immature Granulocytes Abs Auto 0.06 10^3/uL (0.00-0.03); Immature Granulocytes Pct Auto 0.5 % (0.0-0.5); Lymphocytes Absolute Auto 1.5 10^3/uL (1.2-3.8); Mean Corpuscular HGB Conc 32.4 g/dL (29.9-35.2); Mean Corpuscular Hemoglobin 26.6 pg (26.7-34.0); Mean Corpuscular Volume 82.1 fL (81.0-99.0); Platelet Count 206 10^3/uL (150-450); Red Blood Count 2.63 10^6/uL (4.20-5.40); White Blood Count 11.8 10^3/uL (4.0-11.0)
[2025-09-11 06:14] LABS: Hematocrit 21.6 % (36.0-48.0)
--- NOTE | 2025-09-11 08:43 | PM.OBPN ---
OB - PN: Subj Subjective Patient comments: no complaints and pain well controlled status: doing well Exam Constitutional Vital Signs, click to edit/add: Last Vital Signs Temp 97.8 F 09/11/25 03:28 Pulse 96 H 09/11/25 03:28 Resp 18 09/11/25 03:33 BP 107/59 09/11/25 03:28 O2 Del Method Room Air 09/11/25 03:33 Documenting provider has reviewed patient's vital signs: yes Common normals: no apparent distress Respiratory Common normals: normal respiratory effort and clear to auscultation bilaterally Cardio Common normals: regular rate and regular rhythm GI Common normals: Normal to inspection, nondistended, normoactive bowel sounds present Extremity Common normals: no clubbing, cyanosis or edema and no calf tenderness Results Labs Labs: Short CBC 09/10/25 09/11/25 Range/Units 20:52 05:50 WBC 10.9 11.8 H (4.0-11.0) 10^3/uL Hgb 8.1 L 7.0 L (12.0-16.0) g/dL Hct 25.6 L 21.6 L* (36.0-48.0) % Plt Count 234 206 (150-450) 10^3/uL Urinary Catheter Management Urinary Catheter Management Urethral: Cath placed during this visit: yes, but has since been removed by the nurse Insertion date: 09/10/25 Insertion time: 09:12 Removal date: 09/10/25 Removal time: 12:40 OB - PN: A/P Assessment and Plan (1) Delayed hemorrhage: Assessment and Plan: start iron, precautions given, fu 6wks, Plan - Vaginal Delivery day: 1 Plan: routine care, discharge home and follow up 6 weeks Time Spent with Patient Time: Total time spent is greater than 50% in coordination of care (as documented) at patient's floor/unit and/or counseling patient: Total time spent with greater than 50% in coordination of care (as documented) at patient's floor/unit and/or counseling patient: less than 15 minutes
[2025-09-11 08:46] VITALS: BP 117/65; PULSE 96; TEMP 36.6
[2025-09-11 11:44] VITALS: BP 129/60; PULSE 103
== END 2025-09-11 14:55 | disposition home or self-care (01) | DRG 560 ==
PROVIDERS: Admitting Provider Obstetrics & Gynecology; PCP Nurse Practitioner Family; Visit Provider Obstetrics & Gynecology
DX: O69.81X0 Labor and delivery complicated by cord around neck, without compression, not applicable or unspecified (principal); O70.0 First degree perineal laceration during delivery; O72.2 Delayed and secondary postpartum hemorrhage; Z3A.39 39 weeks gestation of pregnancy; Z37.0 Single live birth
CPT/HCPCS: 36415; 51702; 59050; 59410; 80307; 81001; 85025; 85027; 86850; 86900; 86901; 87086; J0290; J1885; J2300; J2795